=== PATIENT | female | born 1990 | race Two or more races ===

== ENCOUNTER → 2019-12-30 13:43 | Outpatient (BNVA) | payer OTHER, SELFPAY | PROVIDERS: PCP Internal Medicine; Visit Provider Physician Assistant Medical | DX: R10.9 Unspecified abdominal pain (principal) | CPT/HCPCS: 99213 ==

== ENCOUNTER → 2020-01-18 07:42 | Outpatient (BNVA) | payer OTHER, SELFPAY | PROVIDERS: PCP Internal Medicine; Visit Provider Physician Assistant Medical | DX: M17.12 Unilateral primary osteoarthritis, left knee (principal); M67.52 Plica syndrome, left knee | CPT/HCPCS: 99213 ==

== ENCOUNTER 2020-02-08 09:00 | Outpatient (RCR) | payer OTHER, SELFPAY ==
--- NOTE | 2020-01-12 12:53 | MHC.PT.OE ---
[facility] Office [place] Office [place] Office [address] Robin Marinelli [address] [phone] F: [phone] F: [phone] F: [phone] F: [phone] Physical Therapy Evaluation Current Condition Diagnosis: LEFT KNEE PAIN Onset Date: AUGUST Date of Surgery: Chief Complaint/ Current Level of Function: INJURED AT WORK, [place] [facility] [place] 12 SESSIONS, HAD TO DC SECONDARY TO COVID/CHILDCARE DIFFICULTIES AND NOW RETURNS FOR CONTINUATION OF PT. LUCAS REPORTS THAT THE THERAPY WAS HELPING BUT SINCE SHE HAS BEEN OUT OF PT X 1 MONTH AND PAIN IS RETURNING AND INCREASING. SHE NOTES INCREASING DIFFICULTY WITH WALKING. 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 PAIN REPORTED IN ANTERIOR KNEE INDICATED IN [place]. DENIES ALTERED SENSATION, NUMBNESS NOR RADIATING PAIN. 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 Patient Goals and Expectations: RETURN TO NORMAL ACTIVITY WITHOUT PAIN Past Medical History: NON CONTRIBUTORY Medications: IBUPROFEN PRN Precautions/ Contraindications: NONE SPECIFIED Outcome Measure: LEFS Pain Pain Score: 5 Pain Scale Used: Numeric (0 - 10) Pain Location: LEFT ANTERIOR KNEE Pain Radiation Location: Pain Frequency: Intermittent Pain Description: SHARP Aggravating Factors: WALKING, STANDING Alleviating Factors: REST Objective Findings Posture: Skin & Soft Tissue/ Palpation: Gait/ Functional Mobility: INCREASED PRONATION PHASE HARJIT, MILD VALGUS COLLAPSE AROM (PROM) Strength Hip Flexion: Extension: Abduction: Adduction: ER: IR: Comment: Flexion: 5/5 Extension: 4/5 Abduction: 4/5 Adduction: NT ER: 4/5 IR: 5/5 Other: Knee Flexion: 120(125) Extension: 6(4) Comments: Patella Mobility: Flexion: 5/5 Extension: 5/5 Other: Alonso Assessment: Sacroiliac Assessment: Muscle Length: Special Tests: Vitals: BP: HR: O2SAT: RR: Other: Balance: Neurological Screen: Biceps DTR: Brachioradialis DTR: Triceps DTR: Patella DTR: Achilles DTR: Other: Dermatomes: Sensation: Myotomes: Patient Education Primary 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 SHE WAS INITIALLY IMPROVING WITH THERAPY BUT DUE TO COVID AND CHILDCARE DIFFICULTIES SHE NEEDED TO PUT THERAPY ON HOLD. SHE NOW RETURNS FOR PT SYMPTOMS WERE WORSENING. UPON EXAM IMPAIRMENTS INCLUDE DECREASED ROM, DECREASED STRENGTH, ALTERED POSTURE AND POSITIONING AND INCREASED PAIN. FUNCTIONAL LIMITATIONS INCLUDE DECREASED TOLERANCE TO STATIC STANDING, WALKING, SQUATTING AND HEAVY LIFTING. SHE REPORTS DECREASED ABILITY TO PARTICIPATE IN FITNESS AND COMMUNITY ACTIVITIES AND DECREASED ABILITY TO PERFORM WORK TASKS. SHE IS AN APPROPRIATE CANDIDATE FOR SKILLED PT TO ADDRESS PHYSICAL IMPAIRMENTS AND PROVIDE A TAILORED PROGRAM OF THERAPEUTIC ACTIVITIES TO PROMOTE OPTIMAL RETURN TO PLOF. Rehabilitation Potential: Good Plan of Care Frequency and Duration 2X WEEK FOR 4 WEEKS Short Term Goals INDEPENDENT WITH SELF MANAGEMENT OF SYMPTOMS AND INDEPENDENT INITIAL HEP IN 2 WEEKS [ End ] Care Home Goals TO DEMONSTRATES AMBULATION ON MULTIPLE SURFACES WITHOUT PAIN GREATER THAN 3/10 IN 4 WEEKS TO DEMONSTRATE FULL FUNCTIONAL SQUAT WITHOUT CUING IN 4 WEEKS TO RETURN TO WORK FT/FD IN 6 WEEKS WITHOUT RESTRICTION IN 6 WEEKS [ End ] Treatment Plan Therapeutic Exercise Dynamic Therapeutic Activities Neuromuscular Re-ed Manual Therapies Joint Mobilization Taping Gait Home Exercise Program Patient Education Electrical Stimulation Iontophoresis Ultrasound Hot or Cold Pack Other Reviewed/ Agreed with Student Documentation: N/A Therapist: Electronically signed by: RAH GILL PT, DPT Please sign and return to therapist. Thank you for your referral.
--- NOTE | 2020-02-04 10:22 | MHC.PT.PR ---
[facility] [place] Office [place] Office [place] Office [address] Robin Marinelli 140 [facility] [phone] F: [phone] F: [phone] F: [phone] F: [phone] Physical Therapy Progress Note Diagnosis: LEFT KNEE PAIN Date of Surgery: Date of Evaluation: 01/12/20 Treatments to Date: 7 Cancellations to Date: 0 No Shows to Date: 0 Subjective: I felt really sore but great after the last session, it was a great workout No real pain now, just that heavy feeling Pain Score: 1 Pain Location: Left anterior knee Objective Measures: PAIN 1 at current, but subjectively reports it can increase to 7 with long duration, high load activities ROM 0-125 (improvred from 6-120) MMT REVEALS: HIP EXT, ABD AND ER ALL 5/5 (IMPROVED FROM 4/5) Assessment: Eboni is progressing well with physical therapy and making progress towards goals as anticipated. Today she demosntrates both ROM and strength of LE WNLs. 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 She demonstrated appropriate body mechanics with lifting and carrying up to 20# today. She will benefit from continued therapy to progress dynamic stabilization at knee joint and promote independence with work tasks and lifting. F/U with [facility] 02/08. PT Plan: Continue with PT Frequency and Duration: The patient will be seen 2xweek for 4 weeks Treatment Plan: Therapeutic Exercise Dynamic Therapeutic Activities Neuromuscular Re-ed Manual Therapies Joint Mobilization Taping Gait Home Exercise Program Patient Education Hot or Cold Pack Reviewed/ Agreed with Student Documentation: N/A Therapist: Thank you once again for your referral.
--- NOTE | 2020-02-14 14:54 | MHC.PT.DC ---
[facility] [place] Office [place] Office [place] Office [address] Robin Marinelli [address] [phone] F: [phone] F: [phone] F: [phone] F: [phone] Physical Therapy Discharge Report Diagnosis: LEFT KNEE PAIN Date of Surgery: Date of Evaluation: 01/12/20 Date of Discharge: 02/11/20 Treatments to Date: 8 Cancellations to Date: 0 No Shows to Date: 0 Discharge Status: Improved Function Independent with HEP Insurance Declined Tx Discharge Summary: Eboni was progressing well with physical therapy and making progress towards goals as anticipated. At last visit she demonstrated both ROM and strength of LE WNLs. She had met short term goals and was progressing well towards assisted goals with pain ( heaviness ) the most limiting factor with prolonged activities. She demonstrated appropriate body mechanics with lifting and carrying up to 20#. We had requested additional visits to progress dynamic stabilization at knee joint and promote independence with work tasks and lifting however insurance declined further PT visits. Electronically signed by: RAH GILL PT, DPT Please sign and return to therapist. Thank you for your referral.
== END 2020-03-10 10:57 | disposition other institution (70) ==
LOC: HO.PT 09:00
PROVIDERS: Visit Provider Physician Assistant Medical
DX: M17.12 Unilateral primary osteoarthritis, left knee (principal); M67.52 Plica syndrome, left knee
CPT/HCPCS: 97110; 97112; 97161; 97164; 97530

== ENCOUNTER → 2020-02-09 13:54 | Outpatient (BNVA) | payer OTHER, SELFPAY | PROVIDERS: PCP Internal Medicine; Visit Provider Physician Assistant Medical | DX: M67.52 Plica syndrome, left knee (principal); M17.12 Unilateral primary osteoarthritis, left knee | CPT/HCPCS: 99213 ==

== ENCOUNTER 2020-03-13 15:10 | Outpatient (REF) | payer OTHER, SELFPAY | END 2020-03-13 15:11 | disposition home or self-care (01) | LOC: HO.LAB 15:10 | PROVIDERS: PCP Internal Medicine; Visit Provider Internal Medicine | DX: Z20.828 Contact with and (suspected) exposure to other viral communicable diseases (principal) | CPT/HCPCS: C9803; U0003 ==

== ENCOUNTER 2020-03-20 09:29 | Emergency (ER) | payer OTHER, SELFPAY ==
[2020-03-20 09:36] VITALS: BP 106/62; PULSE 93; RESP 18; TEMP 36.4; O2SAT 97; BMI 26.2
--- NOTE | 2020-03-20 09:46 | XR_ITS ---
EXAMINATION: XR SHOULDER, RIGHT CLINICAL INFORMATION: Right shoulder pain, status post would falling on arm. COMPARISON: None TECHNIQUE: AP external rotation, Grashey, scapular Y, and axillary views of the right shoulder. FINDINGS: The bones and soft tissues are normal. No fracture. Glenohumeral and acromioclavicular alignment is anatomic with normal joint space. No abnormal soft tissue calcifications. XR/XR shoulder RT min 2V IMPRESSION: Unremarkable right shoulder exam.
[2020-03-20] MEDS: Acetaminophen 325 MG TABLET 650 MG PO (09:54)
[2020-03-20] MEDS: NaPROXEN 500 MG TABLET PO (09:54)
--- NOTE | 2020-03-20 09:55 | ED_ITS ---
HPI - Extremity Problem General Chief complaint: Extremity Injury, Upper Stated complaint: shoulder inj,work related Time Seen by Provider: 03/20/20 09:45 Source: patient Mode of arrival: ambulatory History of Present Illness HPI Narrative: 30-year-old female with no significant past medical history presenting to the ED complaining of right shoulder pain s/p piece of wood falling off wall landing on shoulder yesterday. Denies head trauma/LC. Reports pain radiating down arm. Denies numbness, tingling, weakness, injury to other area MD Complaint: extremity pain Related Data Previous Rx's Medication Instructions Recorded acetaminophen [Tylenol Extra 500 mg PO Q6H PRN #20 tab 03/20/20 Strength] cyclobenzaprine 5 mg PO Q8H PRN 5 Days #14 tab 03/20/20 lidocaine [Lidoderm] 1 patch TOPICAL DAILY PRN #30 ea 03/20/20 MDD remove after 12 hours naproxen 500 mg PO BID PRN 10 Days #20 tab 03/20/20 Allergies Allergy/AdvReac Type Severity Reaction Status Date / Time melatonin Allergy Unknown pruritus Verified 02/15/20 07:07 Review of Systems Review of Systems: Constitutional: No Weight loss, No Fever, No Chills Respiratory: No Cough, No Sputum, No Wheezing Musculoskeletal: + joint pain, No Myalgias, No Joint Swelling Skin: No Skin Lesions, No rash Neuro: No Weakness, No Numbness, No Paresthesias Yes all other systems are reviewed and are negative [facility] Past Medical History Attestation statement: The following information was validated with the patient. Surgical History (Updated 02/15/20 @ 07:08 by BREE Samayoa) History of cone biopsy of cervix History of surgery Family History Family History (Updated 02/15/20 @ 07:08 by BREE Samayoa) Father No problems noted. Mother No problems noted. Social History Social History Advance Directives: No Advance Directives Information Provided: No Physical Exam Vital Signs: Vital Signs: Last Vital Signs Temp 97.6 F 03/20/20 09:36 Pulse 93 03/20/20 09:36 Resp 18 03/20/20 09:36 BP 106/62 03/20/20 09:36 Pulse Ox 97 03/20/20 09:36 Body Mass Index 26.2 Const: General: cooperative and healthy appearing Orientation/con sciousness: patient oriented x3 Limitations: no limitations HENMT: Head: Yes normal to inspection Ears: hearing grossly normal bilaterally General nose exam: Normal external nose present Face and sinus: Yes normal facial exam Eyes: General: appearance normal, both eyes and all related structures EOM: EOMs intact bilaterally Neck: Other: No midline cervical spinous tenderness. Neck: Yes normal visual inspection Resp: Effort & Inspection: normal respiratory effort Cardio: Peripheral pulses: radial pulses present Skin: Rashes: no rashes Wounds: no wounds Neuro: General: patient oriented x3 Gait exam (Neuro): Normal gait present Extrem: Other: Right shoulder with ttp > posteriorly, no appreciable deformity/cellulitis. +right-sided trapezius muscle tenderness. Limited complete flexion due to pain. NV intact General: Yes normal to inspection Course Course Course Narrative: * 1119--shoulder x-ray unremarkable MDM - Extremity (Nontraumatic) MDM Narrative Medical decision making narrative: Likely MSK pain/strain. Low concern for fracture/dislocation Discharge Plan Discharge Clinical Impression: Right shoulder pain Qualifiers: Chronicity: acute Qualified Code(s): M25.511 - Pain in right shoulder Patient Disposition: Home, Self-Care Instructions: Arthralgia (ED) Additional Instructions: Your x-rays are unremarkable today in the ED New likely strain/sprain your shoulder Follow-up with her primary care doctor Your pain is likely musculoskeletal Flexeril is a muscle relaxer, take at night as it makes you drowsy, do not drive, drink alcohol, or operate machinery while taking it Naproxen as an anti-inflammatory / pain medication, take with food Lidoderm patches are numbing patches, apply to painful area In addition take Tylenol at home If symptoms persist or worsen, pain becomes unbearable, you developed urinary retention or incontinence, or weakness return to the ED Prescriptions: New acetaminophen [Tylenol Extra Strength] 500 mg tablet 500 mg PO Q6H PRN (Reason: pain or fever) Qty: 20 RF: 0 lidocaine [Lidoderm] 5 % adhesive patch,medicated 1 patch topical DAILY MDD remove after 12 hours PRN (Reason: pain) Qty: 30 RF: 0 naproxen 500 mg tablet 500 mg PO BID PRN (Reason: pain) 10 Days Qty: 20 RF: 0 cyclobenzaprine 5 mg tablet 5 mg PO Q8H PRN (Reason: pain (scale score 7-10)) 5 Days Qty: 14 RF: 0 Referrals: [facility] [Outside] - 2 days
== END 2020-03-20 11:25 | disposition home or self-care (01) ==
PROVIDERS: Emergency Provider Emergency Medicine; PCP Internal Medicine
DX: Z04.2 Encounter for examination and observation following work accident (principal); G89.11 Acute pain due to trauma; M25.511 Pain in right shoulder
CPT/HCPCS: 73030; 99283

== ENCOUNTER → 2020-03-22 10:52 | Outpatient (BNVA) | payer OTHER, SELFPAY | PROVIDERS: PCP Internal Medicine; Visit Provider Physician Assistant Medical | DX: S40.011A Contusion of right shoulder, initial encounter (principal); W22.8XXA Striking against or struck by other objects, initial encounter | CPT/HCPCS: 99202 ==

== ENCOUNTER → 2020-03-28 09:38 | Outpatient (BNVA) | payer OTHER, SELFPAY | PROVIDERS: PCP Internal Medicine; Visit Provider Physician Assistant | DX: S40.011A Contusion of right shoulder, initial encounter (principal); W22.8XXA Striking against or struck by other objects, initial encounter | CPT/HCPCS: 29125; 99213 ==

== ENCOUNTER 2020-04-10 11:00 | Outpatient (RCR) | payer OTHER, SELFPAY ==
--- NOTE | 2020-04-05 12:47 | MHC.PT.EP ---
[facility] [place] Office [place] Office [place] Office [address] Nikole Marinelli [address] [phone] F: [phone] F: [phone] F: [phone] F: [phone] Physical Therapy Plan of Care Date of Evaluation: 04/05/20 Date of Surgery: NA Diagnosis: Blunt trauma to R posterior shoulder Assessment: 30 year old female referred for blunt trauma to R shoulder . Pt injured herself at work about 2 week back. A piece of wood fell on her shoulder while she was working with a patient. Examination reveals 0/10 pain at rest and 7/10 pain with supine lying, lifting heavy weights, TTP over R spine of scapula, pain localized to R shoulder with very occasional radiating symptoms down R UE, pain with end range shoulder flexion, decreased scap muscle strength, altered posture and negative neer's, hawkin kevyn, and AC compression test. She is independent with all ADLS but has pain with activities requiring her to lift. 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 She is a good candidate for PT based on age, goals, physical impairments and functional limitations. She would benefit from therapy to decrease pain, improve ROM, increase muscle strength, postural correction and functional training. Frequency and Duration: The patient will be seen 2/week for 5 weeks Short Term Goals: 1. Pt will have 50% decrease in pain in 2 weeks 2. 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 Pt will be able to perform all her ADLs without pain in 4 weeks. 2. Pt will be able to perform all work activities without pain in 5 weeks. 3. Pt will return to PLOF in 5 weeks Treatment Plan: Modalities to reduce pain, spasms and effusion. Manual therapy to restore motion and function. Therapeutic exercise to improve strength and flexibility. Neuromuscular re-education for posture and balance. Therapeutic activities to return to functional activities of daily living. Electronically signed by: Heather Carter DPT Please sign and return to therapist. Thank you for your referral.
--- NOTE | 2020-05-16 14:50 | MHC.PT.DC ---
[facility] [place] Office [place] Office [place] Office [address] Robin Marinelli [address] [phone] F: [phone] F: [phone] F: [phone] F: [phone] Physical Therapy Discharge Report Diagnosis: Blunt trauma to R posterior shoulder Date of Surgery: NA Date of Evaluation: 04/05/20 Date of Discharge: 05/16/20 Treatments to Date: 3 Cancellations to Date: 0 No Shows to Date: 1 Discharge Status: Visit Non-compliance Discharge Summary: 05/16/20- Pt did not make any more appointments after 2 weeks of therapy. Pt called and stated that she would like to continue therapy however she did not make any more appointments. Pt therefore d/c for non compliance. Electronically signed by: Heather Carter DPT Please sign and return to therapist. Thank you for your referral.
== END 2020-05-16 14:51 | disposition other institution (70) ==
LOC: HO.PT 11:00
PROVIDERS: PCP Internal Medicine; Visit Provider Physician Assistant
DX: S49.91XD Unspecified injury of right shoulder and upper arm, subsequent encounter (principal); R60.0 Localized edema
CPT/HCPCS: 97014; 97110; 97140; 97161

== ENCOUNTER → 2020-04-12 11:04 | Outpatient (BNVA) | payer OTHER, SELFPAY | PROVIDERS: PCP Internal Medicine; Visit Provider Physician Assistant Medical | DX: S46.911D Strain of unspecified muscle, fascia and tendon at shoulder and upper arm level, right arm, subsequent encounter (principal); X58.XXXD Exposure to other specified factors, subsequent encounter; M54.10 Radiculopathy, site unspecified | CPT/HCPCS: 99213 ==

== ENCOUNTER → 2020-05-03 10:42 | Outpatient (BNVA) | payer OTHER, SELFPAY | PROVIDERS: PCP Internal Medicine; Visit Provider Physician Assistant Medical | DX: S49.91XD Unspecified injury of right shoulder and upper arm, subsequent encounter (principal); W22.8XXD Striking against or struck by other objects, subsequent encounter | CPT/HCPCS: 99213 ==

== ENCOUNTER 2020-05-03 12:35 | Outpatient (REF) | payer OTHER, SELFPAY ==
--- NOTE | 2020-05-03 12:38 | MR_ITS ---
EXAMINATION: MR SHOULDER WITHOUT CONTRAST, RIGHT CLINICAL INFORMATION: Blunt trauma with radicular arm pain. Weakness. Attention: Scapula. COMPARISON: XR right shoulder 03/20/2020 TECHNIQUE: MRI of the shoulder without contrast was performed on a high-field scanner. FINDINGS: ROTATOR CUFF: Intact. No muscle atrophy or fatty infiltration. BICEPS: Normal. CORACOACROMIAL ARCH: The undersurface of the acromion is curved with no subacromial spur. The acromioclavicular joint is normal. LABRUM/CAPSULE: There is probably some cartilage undermining the posterior labrum. Otherwise, there is no definite discrete labral tear. The capsular structures are unremarkable. GLENOHUMERAL JOINT/MARROW: The cartilage is intact. There is a small focus of bone marrow edema in the greater tuberosity which may represent a small bone contusion. Most of the scapula is imaged, except for the medial edge, and is unremarkable. MR/MR shoulder RT wo con IMPRESSION: 1. Possible small bone contusion in the greater tuberosity. 2. Otherwise, unremarkable MRI of the right shoulder with no evidence of internal derangement.
== END 2020-05-03 12:36 | disposition home or self-care (01) ==
LOC: HO.MRI 12:35
PROVIDERS: Visit Provider Internal Medicine
DX: M25.511 Pain in right shoulder (principal); R53.1 Weakness
CPT/HCPCS: 73221

== ENCOUNTER → 2020-05-11 12:55 | Outpatient (BNVA) | payer OTHER, SELFPAY | PROVIDERS: PCP Internal Medicine; Visit Provider Physician Assistant Medical | DX: S40.011D Contusion of right shoulder, subsequent encounter (principal); X58.XXXD Exposure to other specified factors, subsequent encounter | CPT/HCPCS: 99213 ==

== ENCOUNTER 2020-05-25 08:32 | Outpatient (REF) | payer OTHER, SELFPAY ==
--- NOTE | 2020-05-25 09:00 | EMG_ITS ---
Right median and ulnar motor and sensory studies were performed. Right radial sensory study was performed and paraspinal muscles were tested with a needle. IMPRESSION: Unremarkable study with no evidence of entrapment neuropathy or radiculopathy. There was no evidence of plexopathy either. MD BELKYS Kapoor/NATL / [id number]
== END 2020-05-25 08:33 | disposition home or self-care (01) ==
LOC: HO.NEURO 08:32
PROVIDERS: Visit Provider Physician Assistant Medical
DX: S49.91XA Unspecified injury of right shoulder and upper arm, initial encounter (principal)
CPT/HCPCS: 95886; 95910

== ENCOUNTER 2020-06-30 08:49 | Outpatient (REF) | payer OTHER, SELFPAY ==
--- NOTE | ~2020-06-30 | FL_ITS ---
EXAMINATION: FL BARIUM SWALLOW CLINICAL INFORMATION: Gastroesophageal reflux disease. COMPARISON: None TECHNIQUE: Barium swallow examination is performed using fluoroscopic evaluation in addition to multiple fluoroscopic spot views. The patient is imaged both upright and prone and using both thick and thin sulfate along with effervescent granules. Fluoroscopy time: 1.6 minutes DAP: 9.3 Gycm2 Images: 53 FINDINGS: Following intravenous administration of thick barium, barium coated turkey in upright view there is normal perfusion bolus from the oral cavity through the pharynx, esophagus into stomach without any evidence of obstruction, narrowing or stricture. Following oral demonstration of thin barium there is normal distention of the entire esophagus without obstruction, narrowing or stricture. There is no gastroesophageal reflux or hiatal hernia. FL/FL barium swallow IMPRESSION: Unremarkable barium swallow exam.
== END 2020-06-30 08:50 | disposition home or self-care (01) ==
LOC: HO.XRAY 08:49
PROVIDERS: PCP Internal Medicine; Visit Provider Internal Medicine
DX: K21.9 Gastro-esophageal reflux disease without esophagitis (principal)
CPT/HCPCS: 74220

== ENCOUNTER → 2020-09-04 11:43 | Outpatient (BNVA) | payer OTHER, SELFPAY | PROVIDERS: PCP Internal Medicine; Visit Provider Internal Medicine | DX: M79.89 Other specified soft tissue disorders (principal) | CPT/HCPCS: 36415; 85027; 85652; 86038; 86039; 86431; 99202 ==

== ENCOUNTER → 2020-09-11 14:29 | Outpatient (BNVA) | payer OTHER, SELFPAY | PROVIDERS: PCP Internal Medicine; Visit Provider Internal Medicine | DX: M79.641 Pain in right hand (principal) | CPT/HCPCS: 99213 ==

== ENCOUNTER → 2020-09-20 14:56 | Outpatient (BNVA) | payer SELFPAY | PROVIDERS: PCP Internal Medicine | DX: Z76.89 Persons encountering health services in other specified circumstances (principal) ==

== ENCOUNTER → 2020-09-25 10:49 | Outpatient (BNVA) | payer OTHER, SELFPAY | PROVIDERS: PCP Internal Medicine; Visit Provider Internal Medicine | DX: M79.641 Pain in right hand (principal) | CPT/HCPCS: 99213 ==

== ENCOUNTER → 2020-10-18 10:44 | Outpatient (BNVA) | payer OTHER, SELFPAY | PROVIDERS: PCP Internal Medicine; Visit Provider Physician Assistant | DX: M79.641 Pain in right hand (principal); M79.631 Pain in right forearm | CPT/HCPCS: 99213 ==

== ENCOUNTER 2021-08-30 08:54 | Emergency (ER) | payer OTHER, SELFPAY ==
--- NOTE | ~2021-08-30 | XR_ITS ---
EXAMINATION: XR FOOT, RIGHT CLINICAL INFORMATION: Foot pain COMPARISON: None TECHNIQUE: AP, lateral, and oblique views of the right foot. FINDINGS: No fracture or dislocation. Alignment is anatomic. Joint spaces are maintained. Unremarkable soft tissues. XR/XR foot RT 2V IMPRESSION: Normal right foot.
[2021-08-30 09:16] VITALS: BP 135/91; PULSE 82; RESP 18; TEMP 36.6; O2SAT 100; BMI 28.3
--- NOTE | 2021-08-30 10:35 | ED.LOWEXIN ---
HPI - Extremity Injury (Lower) General Chief Complaint: Extremity Injury, Lower Stated Complaint: R FOOT PAIN Time Seen by Provider: 08/30/21 10:31 Source: patient Mode of arrival: ambulatory Limitations: no limitations History of Present Illness MD complaint: foot injury Onset (ago): day(s) (yesterday) Injury: Right: foot Type of Injury: other ( grocery store ran over the patient's foot) Place: other ( grocery store) Severity: mild Relieving factors: nothing Exacerbating factors: weight bearing, movement and palpation Context: other ( crush injury) Associated symptoms: ambulatory Other symptoms: none Related Data Previous Rx's Medication Instructions Recorded ibuprofen 800 mg tablet 800 mg PO Q8H PRN 30 Days #90 tab 06/14/21 naproxen 500 mg tablet 500 mg PO BID PRN #14 tab 08/30/21 Allergies Allergy/AdvReac Type Severity Reaction Status Date / Time melatonin Allergy Unknown pruritus Verified 06/14/21 09:54 Review of Systems Review of Systems: Constitutional : No Weight loss, No Fever, No Chills, No Night Sweats, No Fatigue, No Malaise ENT/Mouth : No Hearing loss, No Ear Pain, No Nasal Congestion, No Sinus Pain, No Hoarseness, No sore throat, No Rhinorrhea, No Swallowing Difficulty Eyes: No Eye Pain, No Swelling, No Redness, No Foreign Body, No Discharge, No Vision Changes Cardiovascular : No Chest Pain, No SOB, No Dyspnea on Exertion, No Orthopnea, No Edema, No Palpitations Respiratory : No Cough, No Sputum, No Wheezing, No Smoke Exposure, No Dyspnea Gastrointestinal : No Nausea, No Vomiting, No Diarrhea, No Constipation, No abdominal Pain, No Hematochezia, No Melena Genitourinary : no irregular bleeding, No Dysuria, No Urinary Frequency, No Hematuria, No Urinary Incontinence, No Urgency, No Flank Pain, No Urinary Flow Changes, No Hesitancy Musculoskeletal : + right foot joint pain, No Myalgias, No Joint Swelling Skin : No Skin Lesions, No rash Neuro : No Weakness, No Numbness, No Paresthesias, No Loss of Consciousness, No Dizziness, No Headache Psych : No Anxiety/Panic, No Depression, No SI/HI/AH/VH, No Social Issues, Heme/Lymph: No Bruising, No Bleeding,No Lymphadenopathy Endocrine : No Polyuria, No Polydipsia, No Temperature Intolerance Yes all other systems are reviewed and are negative [facility] Past Medical History Attestation statement: The following information was validated with the patient. Source: old records reviewed and nursing notes reviewed Medical History Encounter for physical examination GERD (gastroesophageal reflux disease) Left knee pain Surgical History History of cone biopsy of cervix History of surgery Family History Family History Father No problems noted. Mother Essential hypertension Thyroid disease Asthma Social History Social History Housing: House Alcohol intake: current Alcohol intake frequency: a few times a week Alcohol type: wine Patient Tobacco Use Status: Current everyday Tobacco user Tobacco use type: Cigarette Cigarettes Per Day: 2 e-Cigarette/Vaping Use: Never Used Second Hand Smoke Exposure: No Advance Directives: No Advance Directives Information Provided: No service: No Current occupational status: employed Current occupational exposures/hazards: No Physical Exam Vital Signs: Vital Signs: Last Vital Signs Temp 97.9 F 08/30/21 09:16 Pulse 82 08/30/21 09:16 Resp 18 08/30/21 09:16 BP 135/91 H 08/30/21 09:16 Pulse Ox 100 08/30/21 09:16 BMI result Body Mass Index 28.3 vital signs have been reviewed as normal and appeared to be correct. Blood pressure 135/91 Heart rate normal. Respiration rate normal. Temperature normal. Oxygen saturation normal. Appearance: Alert. Oriented X3. No acute distress. Head: Normal external exam. Normocephalic. Atraumatic. Eyes: PERRLA. EOMI. Conjunctiva and sclera normal. Eyelids normal. ENT: Pharynx normal. Uvula midline. Moist mucous membranes. Neck: Normal inspection. Neck supple. FROM. CVS: Normal heart rate and rhythm. Respiratory: No respiratory distress. Painless inspiration. Skin: Skin warm and dry. Normal skin color. Normal skin turgor. No rashes/lesions/lacerations noted. Extremities: Patient with TTp to right foot at the dorsal aspect no obvious signs of trauma/deformities/lacerations/abrasions/swelling or FB's. No obvious ligamentous or tendon injury noted. She has full range of motion of the right toe/foot/ ankle joint. Otherwise all other extremities exhibit normal range of motion nontender. Neuro: Oriented X 3. No motor deficit. No sensory deficit. Reflexes normal. Normal steady gait. No focal neuro deficits noted. Vascular: + radial pulses/+ 2 distal pedal pulses/+2 dorsalis pedis b/l. Normal cap refill. No cyanosis noted to upper extremity nails and lower extremity toes nails. Course Course Course Narrative: X-ray negative will place an Medhat wrap and treat symptomatically and instructed follow-up with PCP and to return if any new or worsening symptoms. Patient understands agrees with this plan. MDM - Extremity Injury (Lower) Medical Records Attestation: I reviewed the patient's medical records. Imaging Data Right foot x-ray: Attestation: I personally reviewed and interpreted this imaging study as follows: Radiologist's impression: FINDINGS: No fracture or dislocation. Alignment is anatomic. Joint spaces are maintained. Unremarkable soft tissues.? XR/XR foot RT 2V IMPRESSION: Normal right foot. Discharge Plan Discharge Clinical Impression: Right foot sprain Patient Disposition: Home, Self-Care Instructions: How to Use an Elastic Bandage (ED), Foot Sprain (ED) Prescriptions: New naproxen 500 mg tablet 500 mg PO BID PRN (Reason: pain) Qty: 14 0RF No Action ibuprofen 800 mg tablet 800 mg PO Q8H PRN (Reason: pain) 30 Days Qty: 90 0RF Referrals: Farzaneh Levi MD [Primary Care Provider] - 2 days Stand Alone Forms: Work/School Release
== END 2021-08-30 10:51 | disposition home or self-care (01) ==
PROVIDERS: Emergency Provider Emergency Medicine; PCP Internal Medicine
DX: S93.601A Unspecified sprain of right foot, initial encounter (principal); W23.0XXA Caught, crushed, jammed, or pinched between moving objects, initial encounter; Y93.9 Activity, unspecified; Y92.512 Supermarket, store or market as the place of occurrence of the external cause; Y99.9 Unspecified external cause status
CPT/HCPCS: 73620; 99283

== ENCOUNTER 2021-11-20 10:41 | Emergency (ER) | payer OTHER, SELFPAY ==
--- NOTE | ~2021-11-20 | XR_ITS ---
EXAMINATION: XR CHEST CLINICAL INFORMATION: Dyspnea. Covid positive. COMPARISON: None TECHNIQUE: Frontal view of the chest was obtained. FINDINGS: No significant abnormality is noted involving the heart, lungs, mediastinum, bony thorax or soft tissues. XR/XR chest 1V IMPRESSION: Unremarkable examination.
[2021-11-20 10:44] VITALS: BP 149/100; PULSE 84; RESP 18; TEMP 36.6; O2SAT 99; BMI 26.2
--- NOTE | 2021-11-20 11:48 | ED_ITS ---
HPI - General Adult General Chief complaint: Upper Respiratory Symptoms Stated complaint: COVID+/SOB/Headache Time Seen by Provider: 11/20/21 10:50 Source: patient Mode of arrival: ambulatory History of Present Illness HPI narrative: 31-year-old female with a past medical history of GERD, presents to the emergency department with SOB, headache, and myalgias. Patient states that her COVID-19 test returned positive on Thursday 11/16, however her symptoms began morning. Patient endorses mild SOB on exertion, headache, chills, runny nose, mild cough with sputum production, nausea, and mild sore throat. Patient reports that she has tried ibuprofen with little relief, last taken yesterday. Patient denies fever, vision changes, lightheadedness, dizziness, wheezing, vomiting, or abdominal pain. Onset (ago): day(s) Related Data Previous Rx's Medication Instructions Recorded ibuprofen 800 mg tablet 800 mg PO Q8H PRN pain 30 days #90 06/14/21 tabs naproxen 500 mg tablet 500 mg PO BID PRN pain #14 tabs 08/30/21 benzonatate 100 mg capsule 100 mg PO TID PRN cough #14 caps 11/20/21 mbvjigjpmc-dxnrzvmxaevrm-sbnbvszx 1 cap PO Q4-6H PRN headache #14 11/20/21 50 mg-300 mg-40 mg capsule caps (Fioricet) fluticasone propionate 50 2 spray intranasal DAILY #16 grams 11/20/21 mcg/actuation nasal spray,suspension (Flonase Allergy Relief) Allergies Allergy/AdvReac Type Severity Reaction Status Date / Time melatonin Allergy Unknown pruritus Verified 06/14/21 09:54 Review of Systems Review of Systems: Constitutional: No Weight loss, No Fever, + Chills ENT/Mouth: No Ear Pain, + Nasal Congestion, No Sinus Pain, No Hoarseness, + Mild Sore Throat, + Rhinorrhea, No Swallowing Difficulty Cardiovascular: No Chest Pain, + Mild SOB Respiratory: + Cough, + Sputum, No Wheezing Gastrointestinal: + Nausea, No Vomiting, No Diarrhea, No Constipation, No Abdominal pain Genitourinary: No Dysuria, No Urinary Frequency, No Hematuria, No Urinary Incontinence/retention, No Urgency, No Flank Pain Musculoskeletal: No Joint Pain, + Myalgias, No Joint Swelling Skin: No Skin Lesions, No Rash Neuro: No Weakness, No Numbness, No Paresthesias Yes all other systems are reviewed and are negative Constitutional: Constitutional: Reports as per [facility] Past Medical History Attestation statement: The following information was validated with the patient. Medical History Encounter for physical examination GERD (gastroesophageal reflux disease) Left knee pain Surgical History History of cone biopsy of cervix History of surgery Family History Family History Father No problems noted. Mother Essential hypertension Thyroid disease Asthma Social History Social History Housing: House Alcohol intake: current Alcohol intake frequency: a few times a week Alcohol type: wine Patient Tobacco Use Status: Current everyday Tobacco user Tobacco use type: Cigarette Cigarettes Per Day: 2 e-Cigarette/Vaping Use: Never Used Second Hand Smoke Exposure: No Advance Directives: No Advance Directives Information Provided: Yes service: No Current occupational status: employed Current occupational exposures/hazards: No Physical Exam ED Vital Signs: Vital Signs - 24 hr 11/20/21 10:44 11/20/21 13:17 Temperature 97.8 F Pulse Rate 84 58 Respiratory Rate 18 16 Blood Pressure 149/100 H 105/67 Pulse Oximetry 99 100 Oxygen Delivery Method Room Air Room Air BMI result Body Mass Index 26.2 Const General: cooperative, healthy appearing and no acute distress Orientation/consciousness: patient oriented x3 Limitations: no limitations [facility] Head: Yes normal to inspection and Yes atraumatic Ears: hearing grossly normal bilaterally General nose exam: Normal external nose present Face and sinus: Yes normal facial exam Mouth: Normal oral and palatal mucosa present and moist mucous membranes Throat: Yes uvula midline Eyes General: appearance normal, both eyes and all related structures Pupils: Equal, round and reactive pupils present EOM: EOMs intact bilaterally Neck Neck: Yes normal visual inspection, Yes no meningeal signs and No lymphadenopathy Resp Effort & Inspection: normal respiratory effort and no respiratory distress Auscultation: clear to auscultation bilaterally, no crackles, no rales, no rhonchi and no wheezes Cardio Rate: regular rate Heart sounds: S1 normal heart sound present and S2 normal heart sound present GI Inspection: Yes normal to inspection and No distended Palpation (GI): Soft to palpation, nontender, no guarding and not rigid General: Yes no CVA tenderness Back/Spine/Pelvis Back: no CVA tenderness Skin General skin exam: no rashes or lesions noted Rashes: no rashes Wounds: no wounds Neuro General: patient oriented x3, tone normal and no meningeal signs Cranial nerves: Yes Equal, round and reactive pupils present Gait exam (Neuro): Normal gait present Extrem General: Yes normal to inspection Course Course Course Narrative: 12:01 -- XR chest 1V IMPRESSION: Unremarkable examination. -Repeat BP without intervention 111/75 -patient report symptomatic improvement after p.o. Fioricet Results discussed with patient including worrisome signs and symptoms and strict return precautions, and when to return to the emergency department. They verbalized understanding and feel safe for discharge at this time. Medical Decision Making ECG Data Attestation: I personally reviewed and interpreted this ECG as follows: Prior ECG tracings: available for review Interpretation: Test Reason : SOB Blood Pressure : / mmHG Vent. Rate : 074 BPM ? ? Atrial Rate : 074 BPM P-R Int : 162 ms? QRS Dur : 076 ms QT Int : 412 ms ? ? ? P-R-T Axes : 050 075 028 degrees QTc Int : 457 ms ? Normal sinus rhythm Nonspecific T wave abnormality Abnormal ECG When compared with ECG of 15-DEC-2018 12:04, No significant change was found Discharge Plan Discharge Clinical Impression: COVID-19 Patient Disposition: Home, Self-Care Instructions: COVID-19 (Coronavirus Disease 2019) (ED) Additional Instructions: Your chest x-ray was unremarkable. Fioricet is for headaches, take as needed. Be aware it has Tylenol mixed into not exceed 4 g in 1 day. Additionally Tessalon Perles are for cough. Flonase is a nasal decongestion. Follow up with her doctor as needed. Rest. Stay hydrated. At this time you will be okay for discharge. Please self isolate for 5-10 days. Do not expose yourself to others. You may not go to work or school. Please continue to follow cold instructions and wash your hands frequently. You may take Tylenol / Motrin as directed on the bottle for pain or fever. If you have constant or persistent shortness of breath, fever unresolved with medications, chest pain, or your unable to eat or drink please return to the ED CDC Guidelines for home isolation: - Stay away from others - WEAR A MASK if you are sick AND STAY HOME - Cover your mouth and nose with a tissue when you cough or sneeze. Dispose of tissues in a lined trash can and wash your hands immediately with soap and water for at least 20 seconds. If soap and water are not available, clean hands with alcohol-based hand shade cloth finisher that contains at least 60% alcohol. - Clean your hands often with soap and water for at least 20 seconds - Avoid touching your eyes, nose and mouth with unwashed hands - Do not share dishes, drinking glasses, cups, eating utensils, towels, or beddi ng with other people in your home. After using these items, wash them thoroughly with soap and water or put in the station baggage porter. - Clean high-touch surfaces in your isolation area ( sick room and bathroom) every day; let a caregiver clean and disinfect high-touch surfaces in other areas of the home. Clean the area or item with soap and water or another detergent if it is dirty. Then, use a household disinfectant. - Limit contact with pets and animals: If you must care for a pet, wash your hands before and after interacting with them) Prescriptions: New tqguyhjmqh-lwxfoyzmxtxab-bvzi [Fioricet] 50-300-40 mg capsule 1 cap PO Q4-6H PRN (Reason: headache) Qty: 14 0RF benzonatate 100 mg capsule 100 mg PO TID PRN (Reason: cough) Qty: 14 0RF fluticasone propionate [Flonase Allergy Relief] 50 mcg/actuation spray,suspension 2 spray intranasal DAILY Qty: 16 0RF Rx Instructions: administer into each nostril No Action ibuprofen 800 mg tablet 800 mg PO Q8H PRN (Reason: pain) 30 Days Qty: 90 0RF naproxen 500 mg tablet 500 mg PO BID PRN (Reason: pain) Qty: 14 0RF Referrals: Farzaneh Levi MD [Primary Care Provider] -
--- NOTE | 2021-11-20 12:12 | ECG_ITS ---
Test Reason : sob Blood Pressure : / mmHG Vent. Rate : 074 BPM Atrial Rate : 074 BPM P-R Int : 162 ms QRS Dur : 076 ms QT Int : 412 ms P-R-T Axes : 050 075 028 degrees QTc Int : 457 ms Normal sinus rhythm Nonspecific T wave abnormality Abnormal ECG When compared with ECG of 15-DEC-2018 12:04, No significant change was found Referred By: Shira Hector Electronically Signed By:PACO DE OLIVEIRA
[2021-11-20 13:17] VITALS: BP 105/67; PULSE 58; RESP 16; O2SAT 100
[2021-11-20] MEDS: Benzonatate 100 MG CAPSULE PO (13:44)
[2021-11-20] MEDS: Butalb/Acetamin/Caff 50/325/40 TABLET 2 TAB PO (13:44)
[2021-11-20] MEDS: Ondansetron ODT 4 MG TAB.RAPDIS TRANSLINGU (15:16)
[2021-11-20 15:28] VITALS: BP 112/83; PULSE 63; RESP 16; O2SAT 100
[2021-11-20] MEDS: Ketorolac Tromethamine 30 MG/ML VIAL IM (15:44)
== END 2021-11-20 16:14 | disposition home or self-care (01) ==
PROVIDERS: Emergency Provider Emergency Medicine; PCP Internal Medicine
DX: U07.1 COVID-19 (principal); R05.9 Cough, unspecified; M79.10 Myalgia, unspecified site; R06.02 Shortness of breath; Z71.6 Tobacco abuse counseling; F17.210 Nicotine dependence, cigarettes, uncomplicated; Z79.899 Other long term (current) drug therapy
CPT/HCPCS: 71045; 93005; 96372; 99284; J1885

== ENCOUNTER → 2022-02-05 12:27 | Outpatient (BNVA) | payer OTHER, SELFPAY | PROVIDERS: PCP Internal Medicine; Visit Provider Physician Assistant Medical | DX: S60.211A Contusion of right wrist, initial encounter (principal); X50.9XXA Other and unspecified overexertion or strenuous movements or postures, initial encounter | CPT/HCPCS: 73110; 99203 ==

== ENCOUNTER → 2022-02-14 14:39 | Outpatient (BNVA) | payer OTHER, SELFPAY | PROVIDERS: PCP Internal Medicine; Visit Provider Physician Assistant Medical | DX: S60.211A Contusion of right wrist, initial encounter (principal); X50.9XXA Other and unspecified overexertion or strenuous movements or postures, initial encounter | CPT/HCPCS: 99213 ==

== ENCOUNTER 2022-05-23 10:19 | Outpatient (REF) | payer OTHER, SELFPAY ==
[2022-05-23 15:28] LABS: Influenza A PCR NEGATIVE (Negative); Influenza B PCR NEGATIVE (Negative); Resp Syncy Virus RNA Qual PCR NEGATIVE (Negative); SARS COV2 PCR INHOUSE NEGATIVE (Negative)
== END 2022-05-23 10:20 | disposition home or self-care (01) ==
LOC: HO.LAB 10:19
PROVIDERS: Visit Provider Hospitalist
DX: Z20.822 Contact with and (suspected) exposure to COVID-19 (principal); B34.9 Viral infection, unspecified
CPT/HCPCS: 0241U

== ENCOUNTER 2023-01-07 15:53 | Outpatient (AMB) | payer OTHER, SELFPAY ==
[2023-01-07 16:32] VITALS: BP 112/72; PULSE 66; O2SAT 99
--- NOTE | 2023-01-07 16:32 | AM.OFFWIN_ITS ---
Intake Vital Signs 01/07/23 16:32 Weight 131 lb BP 112/72 Blood Pressure Location Lt brachial Position Sitting Pulse 66 Pulse Source Pulse Oximeter Pulse Oximetry (%) 99 Oxygen Delivery Method Room Air Intake Visit Reasons: EST/WC wrist pain RT (lobby) Intake Note: Patient here because she was lifting and pushing and on friday she heard a pop in her wrist and has been painful since. Patient Tobacco Use Status: Former Tobacco user (12/2021) Allergies melatonin Allergy (Unknown, Verified 01/07/23 16:48) pruritus Medication List - Last Reconciled 01/07/23 by Kirby Arita MD fluticasone propionate 50 mcg/actuation (Flonase Allergy Relief) 2 sprays intranasal DAILY 14 days miconazole nitrate (Miconazole-7) 100 mg vaginal BEDTIME 7 days HPI EST/WC wrist pain RT (lobby) HPI Details 32-year-old female presents to the [facility] for a sick visit. Patient is complaining of right wrist pain for the past 2 days. Patient uses her hands to push heavy objects at work. [facility] Medical History Encounter for physical examination GERD (gastroesophageal reflux disease) Left knee pain Surgical History History of cone biopsy of cervix History of surgery Family History Father No problems noted. Mother Essential hypertension Thyroid disease Asthma Social History Housing: House Alcohol intake: current Alcohol intake frequency: a few times a week Alcohol type: wine Patient Tobacco Use Status: Former Tobacco user (12/2021) Tobacco use type: Cigarette Cigarettes Per Day: 2 e-Cigarette/Vaping Use: Never Used Second Hand Smoke Exposure: No service: No Current occupational status: employed Current occupational exposures/hazards: No Cognitive needs: No Hearing needs: No Vision needs: No Physical Exam Vital Signs: Last Vital Signs Pulse 66 01/07/23 16:32 BP 112/72 01/07/23 16:32 Pulse Ox 99 01/07/23 16:32 Oxygen Delivery Method Room Air 01/07/23 16:32 Extrem Other: Right wrist: Sharp pain elicited on the dorsum of the wrist. Unable to fully flex or extend the hand at the wrist. Assessment & Plan Assessment & Plan (1) Sprain of right wrist: Code(s): S63.501A - Unspecified sprain of right wrist, initial encounter Plan: X-ray images were personally reviewed by me. No fractures seen. Note provided where she could not use the right upper extremity. Patient was advised to use the splint and the nonsteroidals. Orders: Orders XR wrist RT min 3V 01/07/23 S63.501A - Unspecified sprain of right wrist, initial encounter Medications: New meloxicam 15 mg PO DAILY 14 tabs 0RF Coding Level of Care Code Est Pt Level 4 (96555) Diagnoses Sprain of right wrist S63.501A
== END 2023-01-08 08:32 | disposition home or self-care (01) ==
PROVIDERS: PCP Internal Medicine; Visit Provider Internal Medicine
DX: S63.501A Unspecified sprain of right wrist, initial encounter (principal)
CPT/HCPCS: 99214

== ENCOUNTER 2023-01-07 16:56 | Outpatient (REF) | payer OTHER, SELFPAY | END 2023-01-07 16:57 | disposition home or self-care (01) | LOC: HO.HMGCX 16:56 | PROVIDERS: PCP Internal Medicine; Visit Provider Internal Medicine | DX: S63.501A Unspecified sprain of right wrist, initial encounter (principal) | CPT/HCPCS: 73110 ==

== ENCOUNTER → 2023-01-08 09:40 | Outpatient (BNVA) | payer OTHER, SELFPAY | PROVIDERS: PCP Internal Medicine; Visit Provider Internal Medicine | DX: S63.592A Other specified sprain of left wrist, initial encounter (principal); X50.0XXA Overexertion from strenuous movement or load, initial encounter | CPT/HCPCS: 99202 ==

== ENCOUNTER → 2023-01-20 07:49 | Outpatient (BNVA) | payer OTHER, SELFPAY | PROVIDERS: PCP Internal Medicine; Visit Provider Internal Medicine | DX: S63.8X1A Sprain of other part of right wrist and hand, initial encounter (principal); X50.0XXA Overexertion from strenuous movement or load, initial encounter | CPT/HCPCS: 99213 ==

== ENCOUNTER → 2023-01-27 08:04 | Outpatient (BNVA) | payer OTHER, SELFPAY | PROVIDERS: PCP Internal Medicine; Visit Provider Internal Medicine | DX: S63.501A Unspecified sprain of right wrist, initial encounter (principal); X50.0XXA Overexertion from strenuous movement or load, initial encounter | CPT/HCPCS: 99213 ==

== ENCOUNTER 2023-06-10 15:11 | Outpatient (REF) | payer OTHER, MEDICAID, SELFPAY ==
[2023-06-10 17:24] LABS: Appearance Urine Clear; Color Urine Yellow; Glucose Urine UA Negative (Negative); Leukocyte Esterase Urine Negative (Negative); Nitrite Urine Negative (Negative); Specific Gravity - Urine >= 1.030 (1.005-1.025); Urine Blood Negative (Negative); Urine Ketones Trace mg/dL (Negative); Urine Protein Negative (Neg-Trace)
== END 2023-06-10 15:12 | disposition home or self-care (01) ==
LOC: HO.LAB 15:11
PROVIDERS: PCP Internal Medicine; Visit Provider Internal Medicine
DX: R39.9 Unspecified symptoms and signs involving the genitourinary system (principal)
CPT/HCPCS: 81003

== ENCOUNTER → 2023-10-16 11:23 | Outpatient (BNVA) | payer OTHER, SELFPAY | PROVIDERS: PCP Internal Medicine; Visit Provider Physician Assistant Medical | DX: Z77.21 Contact with and (suspected) exposure to potentially hazardous body fluids (principal); Z01.10 Encounter for examination of ears and hearing without abnormal findings; H44.131 Sympathetic uveitis, right eye | CPT/HCPCS: 92002; 99203 ==

== ENCOUNTER 2024-01-12 15:30 | Outpatient (AMB) | payer OTHER, MEDICAID, SELFPAY ==
[2024-01-12 15:31] VITALS: BP 122/80; BMI 26.5
--- NOTE | 2024-01-12 15:31 | MHC.PC.OV ---
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 Required: No Accompanied by: Self / Same As Patient Allergies melatonin Allergy (Unknown, Verified 01/12/24 15:39) pruritus Medication List - Last Reconciled 01/12/24 by Farzaneh Gomez MD No Known Home Meds Tobacco use date assessed: 01/12/24 Dental Screening Dental Screen Date: 01/12/24 Did you have a dental visit in the last 12 months?: No Did you have a dental problem in the last 6 months where you did not have access to dental care?: No Was dental information given to patient?: Patient has dentist HPI HPI Comments History of Present Illness Details This is a 33-year-old female that comes today complaining of chronic diarrhea that started 2-3 years ago every time she eats anything. This is associated with periumbilical abdominal pain and has episodes of diarrhea multiple times a day. No blood in the stools. No fever. The color is brown or green. No recent travel. No new foods. [facility] Medical History (Updated 01/12/24 @ 15:50 by Farzaneh Gomez MD) Left knee pain Encounter for physical examination GERD (gastroesophageal reflux disease) Surgical History History of surgery History of cone biopsy of cervix Family History Father No problems noted. Mother Essential hypertension Thyroid disease Asthma Social History Housing: House Alcohol intake: current Alcohol intake frequency: a few times a week Alcohol type: wine Patient Tobacco Use Status: Former Tobacco user (12/2021) Tobacco use type: Cigarette Cigarettes Per Day: 2 e-Cigarette/Vaping Use: Never Used Second Hand Smoke Exposure: No service: No Current occupational status: employed Current occupational exposures/hazards: No Cognitive needs: No Hearing needs: No Vision needs: No Questionnaire PHQ-9 Over the last 2 weeks, how often have you been bothered by any of the following problems? 1. Little interest or pleasure in doing things: not at all 2. Feeling down, depressed, or hopeless: not at all 3. Trouble falling or staying asleep, or sleeping too much: not at all 4. Feeling tired or having little energy: not at all 5. Poor appetite or overeating: not at all 6. Feeling bad about yourself - or that you are a failure or have let yourself or your family down: not at all 7. Trouble concentrating on things, such as reading the newspaper or watching television: not at all 8. Moving or speaking so slowly that other people could have noticed. Or the opposite - being so fidgety or restless that you have been moving around a lot more than usual: not at all 9. Thoughts that you would be better off or of hurting yourself in some way: not at all Total score: 0 Depression Screening Interpretation: Negative Depression Screening Done: Yes 21088 - PHQ-9 Billing: Yes Source: Developed by Drs. Gera Rodas, Ruth Ann Lr, Walter Urrutia and colleagues, with an educational destiney from [facility]. Thrive Questionnaire Date Thrive assessed: 06/14/21 Are you currently unemployed and looking for a job?: Yes AUDIT C Alcohol Use Questionnaire (AUDIT-C) 1. How often do you have a drink containing alcohol?: Monthly or less 2. How many drinks containing alcohol do you have on a typical day when you are drinking?: 1 or 2 3. How often do you have six or more drinks on one occasion?: Never Total Score: 1 Score Reviewed/Action Taken: No FAUZIA-7 AMB Questionnaire FAUZIA-7 Date FAUZIA - 7 assessed: 06/14/21 Feeling nervous, anxious, or on edge: 0 = Not at all Not being able to stop or control worryin = Not at all Worrying too much about different things: 0 = Not at all Trouble relaxin = Not at all Being so restless that it is hard to sit still: 0 = Not at all Becoming easily annoyed or irritable: 0 = Not at all Feeling afraid as if something awful might happen: 0 = Not at all Total FAUZIA-7 score (0-4 normal; 5-9 mild; 10-14 moderate; 15-21 severe): 0 Source: Developed by Drs. Gera Rodas, Ruth Ann Lr, Walter Urrutia and colleagues, with an educational destiney from [facility]. FAUZIA-7 Assessment Billing FAUZIA-7 Assessment Tool: FAUZIA-7 Assessment 27770 Review of Systems Const All systems reviewed & are unremarkable except as noted in HPI and below Card Denies chest pain at rest, Denies chest pain with activity, Denies edema, Denies irregular heart rhythm, Denies claudication, Denies dyspnea, Denies dyspnea on exertion, Denies orthopnea, Denies paroxysmal nocturnal dyspnea and Denies slow heart rate Resp Denies cough, Denies dyspnea and Denies dyspnea on exertion GI Reports abdominal pain and Reports diarrhea Neuro Denies lack of coordination Physical exam (Primary Care) Vital Signs: Last Vital Signs BP 122/80 01/12/24 15:31 BMI result Body Mass Index 26.5 Tobacco/Smoking Status: Tobacco use Status Tobacco use date assessed 01/12/24 01/12/24 15:38 Patient Tobacco Use Status Former Tobacco user (12/202101/12/24 15:38 ) Tobacco use type Cigarette 01/12/24 15:38 e-Cigarette/Vaping Use Never Used 01/12/24 15:38 PHQ-9: PHQ-9 Score PHQ-9: Total score 0 01/12/24 15:52 Depression Screening Interpretation: Negative Thrive Assessment: Date of Thrive Assessment Date Thrive assessed 06/14/21 01/12/24 15:38 Resp Effort & Inspection: normal respiratory effort Auscultation: clear to auscultation bilaterally Cardio Jugular venous distension: no JVD Rate: regular rate Rhythm: regular rhythm Heart sounds: S1 normal heart sound present and S2 normal heart sound present GI Inspection: Yes normal to inspection Palpation (GI): Soft to palpation and nontender Auscultation: normal bowel sounds Extrem General: Yes full ROM Psych Appearance: grossly normal Office Procedures Flu Questionnaire Does the patient have a severe egg allergy?: No Immunizations Fluarix Triv [id number] (PF) 45 mcg (15 mcg x 3)/0.5 mL IM syringe Performing Provider: Farzaneh Gomez MD [facility] Documented (not given) by: BREE Rodriguez on 01/12/24 15:38 Reason Not Given: Patient Refused Coding Level of Care Code Est Pt Level 3 (67440) Complex EM visit Add On G2211 Diagnoses Chronic diarrhea K52.9 Periumbilical pain R10.33 Additional Codes FAUZIA-7 Assessment Billing - FAUZIA-7 Assessment Tool: FAUZIA-7 Assessment 63540 ([id number]) Time Spent (min) 19 Assessment & Plan Assessment & Plan (1) Chronic diarrhea: Code(s): K52.9 - Noninfective gastroenteritis and colitis, unspecified Category: Medical Plan: Labs and stool samples ordered. Referred to Gastroenterology. (2) Periumbilical pain: Code(s): R10.33 - Periumbilical pain Category: Medical Plan: Ultrasound of the abdomen ordered. Orders: Orders Influenza [id number] Immunization Today Z23 - Encounter for immunization H pylori Ag Stool Today R19.7 - Diarrhea, unspecified Leukocytes Stool Qualitative Today K52.9 - Noninfective gastroenteritis and colitis, unspecified Complete Blood Count Auto Diff Today D64.9 - Anemia, unspecified Thyroid Stimulating Hormone Today K52.9 - Noninfective gastroenteritis and colitis, unspecified Celiac Disease Panel Today K52.9 - Noninfective gastroenteritis and colitis, unspecified US abdomen complete Today K52.9 - Noninfective gastroenteritis and colitis, unspecified, R10.33 - Periumbilical pain Giardia Ag Stool EIA Today R19.7 - Diarrhea, unspecified Comprehensive Met. Panel Today K52.9 - Noninfective gastroenteritis and colitis, unspecified Referrals Gastroenterology Referral K52.9 - Noninfective gastroenteritis and colitis, unspecified
== END 2024-01-12 15:50 | disposition home or self-care (01) ==
PROVIDERS: PCP Internal Medicine; Visit Provider Internal Medicine
DX: K52.9 Noninfective gastroenteritis and colitis, unspecified (principal); R10.33 Periumbilical pain; Z23 Encounter for immunization

== ENCOUNTER 2024-01-12 15:30 | Outpatient (REF) | payer OTHER, MEDICAID, SELFPAY ==
[2024-01-12 16:07] LABS: MANUAL DIFF FLAG NO
[2024-01-12 16:29] LABS: Basophils Absolute Auto 0.1 X10*3/uL (0.0-0.2); Basophils Percent Auto 0.5 % (0-2); Eosinophils Absolute Auto 0.1 X10*3/uL (0.0-0.4); Hematocrit 35.8 % (37.0-47.0); Hemoglobin 12.2 g/dl (12.0-16.0); Imm Gran Abs Auto 0.04 X10*3/uL (0.00-0.03); Imm Gran Pct Auto 0.4 % (0.0-0.4); Lymphocytes Absolute Auto 1.4 X10*3/uL (1.2-4.9); Lymphocytes Percent Auto 14.1 % (20-40); Mean Corpuscular HGB Conc 34.1 g/dl (31.0-35.0); Mean Corpuscular Hemoglobin 28.6 pg (27.0-33.0); Mean Platelet Volume 10.5 fL (9.4-12.3); Monocytes Absolute Auto 0.6 X10*3/uL (0.1-1.2); Monocytes Percent Auto 5.6 % (2-11); Neutrophils Absolute Auto 7.7 x10*3/uL (2.0-8.3); Neutrophils Percent Auto 78.4 % (45-73); Platelet Count 316 X10*3/uL (160-400); Red Blood Count 4.26 X10*6/uL (4.20-5.50); Red Cell Distribution Width 13.4 % (11.0-16.0); White Blood Count 9.9 X10*3/uL (4.8-10.8)
[2024-01-12 16:59] LABS: Alanine Aminotransferase 23 U/L (0-31); Albumin Level 4.7 g/dL (3.5-5.0); Alkaline Phosphatase 84 U/L (39-117); Anion Gap 12 (12-20); Aspartate Amino Transferase 15 U/L (5-31); Bilirubin Total 0.3 mg/dL (0.0-1.0); Blood Urea Nitrogen 12 mg/dL (9-16); Calcium 9.3 mg/dL (8.4-10.2); Carbon Dioxide 25 mmol/L (22-29); Chloride 104 mmol/L (96-108); Estimated Glomerular Filt Rate > 60; Glucose Random 86 mg/dL (60-115); Sodium 137 mmol/L (135-145); Total Protein 7.5 g/dL (6.5-8.0)
[2024-01-12 17:15] LABS: Thyroid Stimulating Hormone 1.22 uIU/mL (0.32-4.0)
[2024-01-13 22:24] LABS: Immunoglobulin A 198 mg/dL (47-310); Transglutaminase IgA <1.0 U/mL
== END 2024-01-12 15:31 | disposition home or self-care (01) ==
LOC: HO.LAB 15:30
PROVIDERS: PCP Internal Medicine; Visit Provider Internal Medicine
DX: K52.9 Noninfective gastroenteritis and colitis, unspecified (principal); D64.9 Anemia, unspecified; R10.33 Periumbilical pain; Z23 Encounter for immunization
CPT/HCPCS: 36415; 80053; 82784; 84443; 85025; 86364; 90471; 96127; 99212

== ENCOUNTER 2024-01-22 08:39 | Outpatient (REF) | payer OTHER, MEDICAID, SELFPAY ==
--- NOTE | ~2024-01-22 | US_ITS ---
EXAMINATION: US ABDOMEN COMPLETE CLINICAL INFORMATION: Periumbilical pain, diarrhea. COMPARISON: None available. TECHNIQUE: Real-time imaging of the abdominal viscera. FINDINGS: PANCREAS: No peripancreatic fluid collections. INFERIOR VENA CAVA: Visualized portions demonstrated flow. LIVER: Normal echotexture. No solid or cystic lesion. Liver is not measured. No intrahepatic biliary ductal dilatation. . . GALLBLADDER: Fluid-filled without pericholecystic fluid collection or gallbladder wall thickening COMMON BILE DUCT: Measures 4 mm in diameter. RIGHT KIDNEY: 10 cm no solid or cystic lesion. No hydronephrosis. Cortical medullary junction is normal. LEFT KIDNEY: 10 cm. No hydronephrosis. No solid or cystic lesion. Corticomedullary junction is normal. SPLEEN: 10 cm. No solid or cystic lesion.. FREE FLUID: None. US/US abdomen complete IMPRESSION: No cholelithiasis. No ascites. No hydronephrosis. Electronically signed by: Ricardo Luna MD 01/28/2024 12:45 PM EDT
== END 2024-01-22 08:40 | disposition home or self-care (01) ==
LOC: HO.US 08:39
PROVIDERS: PCP Internal Medicine; Visit Provider Internal Medicine
DX: R10.33 Periumbilical pain (principal); K52.9 Noninfective gastroenteritis and colitis, unspecified
CPT/HCPCS: 76700

== ENCOUNTER → 2024-01-22 08:45 | Outpatient (BNV) | payer OTHER, MEDICAID, SELFPAY | PROVIDERS: PCP Internal Medicine; Visit Provider Radiology Diagnostic Radiology | DX: R10.33 Periumbilical pain (principal) | CPT/HCPCS: 76700 ==

== ENCOUNTER 2024-01-27 08:26 | Outpatient (AMB) | payer OTHER, MEDICAID, SELFPAY ==
--- NOTE | 2024-01-27 08:27 | MHC.PC.OV ---
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 Sometimes is diarrhea. No fever. Nausea associated with it. Certain foods can cause more abdominal pain and diarrhea. No recent travel. Stool sample still pending. Labs were unremarkable. Abdominal imaging still pending. No chest pain or shortness on breath. [facility] Medical History (Updated 01/27/24 @ 08:48 by Farzaneh Gomez MD) Left knee pain Encounter for physical examination GERD (gastroesophageal reflux disease) Surgical History History of surgery History of cone biopsy of cervix Family History Father No problems noted. Mother Essential hypertension Thyroid disease Asthma Social History Housing: House Alcohol intake: current Alcohol intake frequency: a few times a week Alcohol type: wine Patient Tobacco Use Status: Former Tobacco user (12/2021) Tobacco use type: Cigarette Cigarettes Per Day: 2 e-Cigarette/Vaping Use: Never Used Second Hand Smoke Exposure: No service: No Current occupational status: employed Current occupational exposures/hazards: No Cognitive needs: No Hearing needs: No Vision needs: No Questionnaire PHQ-9 Over the last 2 weeks, how often have you been bothered by any of the following problems? 1. Little interest or pleasure in doing things: not at all 2. Feeling down, depressed, or hopeless: not at all 3. Trouble falling or staying asleep, or sleeping too much: not at all 4. Feeling tired or having little energy: not at all 5. Poor appetite or overeating: not at all 6. Feeling bad about yourself - or that you are a failure or have let yourself or your family down: not at all 7. Trouble concentrating on things, such as reading the newspaper or watching television: not at all 8. Moving or speaking so slowly that other people could have noticed. Or the opposite - being so fidgety or restless that you have been moving around a lot more than usual: not at all 9. Thoughts that you would be better off or of hurting yourself in some way: not at all Total score: 0 Depression Screening Interpretation: Negative Depression Screening Done: Yes 03058 - PHQ-9 Billing: Yes Source: Developed by Drs. Gera Rodas, Ruth Ann Lr, Walter Urrutia and colleagues, with an educational destiney from [employer]. Thrive Questionnaire Date Thrive assessed: 01/27/24 I am a: Patient What is your living situation today?: I have a steady place to live Within the past 12 months, did the food you bought not last and you didn't have the money to get more?: Never true Within the past 12 months, did you worry whether your food would run out before you got money to buy more?: Never true Do you have trouble paying for medicines?: No Do you have trouble getting transportation to medical appointments?: No Do you have trouble paying your heating and electricity bill?: No Do you have trouble taking care of your child, family member or friend?: No Do you have trouble with day-to-day activities such as bathing, preparing meals, shopping, managing finances, etc.?: No Are you currently unemployed and looking for a job?: No Are you interested in more education?: No Please select the resources that you would like help with: None Currently or been in a relationship where the following occur: No concerns reported THRIVE Score: 0 FAUZIA-7 AMB Questionnaire FAUZIA-7 Date FAUZIA - 7 assessed: 01/27/24 Feeling nervous, anxious, or on edge: 0 = Not at all Not being able to stop or control worryin = Not at all Worrying too much about different things: 0 = Not at all Trouble relaxin = Not at all Being so restless that it is hard to sit still: 0 = Not at all Becoming easily annoyed or irritable: 0 = Not at all Feeling afraid as if something awful might happen: 0 = Not at all Total FAUZIA-7 score (0-4 normal; 5-9 mild; 10-14 moderate; 15-21 severe): 0 Source: Developed by Drs. Gera Rodas, Ruth Ann Lr, Walter Urrutia and colleagues, with an educational destiney from [employer]. FAUZIA-7 Assessment Billing FAUZIA-7 Assessment Tool: FAUZIA-7 Assessment 49816 Review of Systems Const All systems reviewed & are unremarkable except as noted in HPI and below Card Denies chest pain at rest, Denies chest pain with activity, Denies edema, Denies irregular heart rhythm, Denies claudication, Denies dyspnea, Denies dyspnea on exertion, Denies orthopnea, Denies paroxysmal nocturnal dyspnea and Denies slow heart rate Resp Denies cough, Denies dyspnea and Denies dyspnea on exertion GI Reports abdominal pain, Denies change in bowel habits, Denies excessive flatus, Reports dyspepsia, Reports heartburn, Reports nausea and Denies vomiting Denies urinary incontinence, Denies urinary hesitancy and Denies urinary urgency Physical exam (Primary Care) Vital Signs: Last Vital Signs BP 122/70 01/27/24 08:31 BMI result Body Mass Index 26.1 Tobacco/Smoking Status: Tobacco use Status Tobacco use date assessed 01/12/24 01/12/24 15:38 Patient Tobacco Use Status Former Tobacco user 01/12/24 15:38 Tobacco use type Cigarette 01/12/24 15:38 e-Cigarette/Vaping Use Never Used 01/12/24 15:38 Depression Screening Interpretation: Negative Thrive Assessment: Date of Thrive Assessment Date Thrive assessed 06/14/21 01/12/24 15:38 Currently or been in a relationship where the following occur: No concerns reported Resp Effort & Inspection: normal respiratory effort Auscultation: clear to auscultation bilaterally Cardio Jugular venous distension: no JVD Rate: regular rate Rhythm: regular rhythm Heart sounds: S1 normal heart sound present and S2 normal heart sound present GI Inspection: Yes normal to inspection Palpation (GI): Soft to palpation and nontender Auscultation: normal bowel sounds Extrem General: Yes full ROM Coding Level of Care Code Est Pt Level 3 (50072) Complex EM visit Add On G2211 Diagnoses Generalized abdominal pain R10.84 Additional Codes FAUZIA-7 Assessment Billing - FAUZIA-7 Assessment Tool: FAUZIA-7 Assessment 37638 ([id number]) Time Spent (min) 19 Assessment & Plan Assessment & Plan (1) Generalized abdominal pain: Code(s): R10.84 - Generalized abdominal pain Category: Medical Plan: Start omeprazole. Referred to GI. Medications: New omeprazole 20 mg PO DAILY 90 days 90 caps 1RF
[2024-01-27 08:31] VITALS: BP 122/70; BMI 26.1
== END 2024-01-27 08:45 | disposition home or self-care (01) ==
LOC: HO.HMCH 08:26
PROVIDERS: PCP Internal Medicine; Visit Provider Internal Medicine
DX: R10.84 Generalized abdominal pain (principal)

== ENCOUNTER → 2024-01-27 08:26 | Outpatient (BNVA) | payer OTHER, MEDICAID, SELFPAY | PROVIDERS: PCP Internal Medicine; Visit Provider Internal Medicine | DX: R10.84 Generalized abdominal pain (principal) | CPT/HCPCS: 96127 ==

== ENCOUNTER 2024-01-28 09:26 | Emergency (ER) | payer OTHER, MEDICAID, SELFPAY ==
--- NOTE | ~2024-01-28 | XR_ITS ---
EXAMINATION: XR CHEST CLINICAL INFORMATION: Shortness of breath COMPARISON: October 2021. TECHNIQUE: 2 views of the chest were obtained. FINDINGS: No airspace consolidation or pneumothorax seen. Hilar regions and pulmonary vascularity unremarkable. No evidence for pneumomediastinum. Slight blunting in the left costophrenic angle and posterior sulci which may reflect small effusions or pleural reaction. XR/XR chest 2V IMPRESSION: No airspace infiltrate seen. Findings suggestive of small pleural effusions. Electronically signed by: Will Stacy MD 01/28/2024 11:10 AM EDT
--- NOTE | 2024-01-28 09:28 | ECG_ITS ---
Test Reason : chest pain Blood Pressure : / mmHG Vent. Rate : 080 BPM Atrial Rate : 080 BPM P-R Int : 166 ms QRS Dur : 074 ms QT Int : 374 ms P-R-T Axes : 071 075 039 degrees QTc Int : 431 ms Normal sinus rhythm Normal ECG When compared with ECG of 20-NOV-2021 12:13, No significant change was found Referred By: Generic ED Physician Electronically Signed By:SHYAM BEAL
[2024-01-28 09:35] VITALS: BP 129/90; PULSE 77; RESP 16; TEMP 36.8; O2SAT 99; BMI 26.0
[2024-01-28 09:59] LABS: MANUAL DIFF FLAG NO
[2024-01-28 10:01] LABS: Basophils Percent Auto 0.3 % (0-2); Eosinophils Percent Auto 0.4 % (0-4); Hematocrit 39.6 % (37.0-47.0); Imm Gran Abs Auto 0.03 X10*3/uL (0.00-0.03); Imm Gran Pct Auto 0.4 % (0.0-0.4); Lymphocytes Absolute Auto 1.2 X10*3/uL (1.2-4.9); Lymphocytes Percent Auto 17.3 % (20-40); Mean Corpuscular HGB Conc 32.8 g/dl (31.0-35.0); Mean Corpuscular Hemoglobin 28.2 pg (27.0-33.0); Mean Corpuscular Volume 85.9 fL (80.0-98.0); Mean Platelet Volume 11.4 fL (9.4-12.3); Monocytes Absolute Auto 0.4 X10*3/uL (0.1-1.2); Monocytes Percent Auto 5.3 % (2-11); Neutrophils Absolute Auto 5.2 x10*3/uL (2.0-8.3); Neutrophils Percent Auto 76.3 % (45-73); Platelet Count 249 X10*3/uL (160-400); Red Blood Count 4.61 X10*6/uL (4.20-5.50); Red Cell Distribution Width 13.7 % (11.0-16.0); White Blood Count 6.8 X10*3/uL (4.8-10.8)
[2024-01-28 10:16] LABS: Alanine Aminotransferase 21 U/L (0-31); Albumin Level 4.6 g/dL (3.5-5.0); Alkaline Phosphatase 68 U/L (39-117); Anion Gap 12 (12-20); Aspartate Amino Transferase 16 U/L (5-31); Bilirubin Direct 0.1 mg/dL (0.0-0.5); Bilirubin Total 0.4 mg/dL (0.0-1.0); Blood Urea Nitrogen 10 mg/dL (9-16); Carbon Dioxide 21 mmol/L (22-29); Chloride 109 mmol/L (96-108); Creatinine Clr Calc Pharmacy 77.4; Estimated Glomerular Filt Rate > 60; Glucose Random 110 mg/dL (60-115); Lipase 12 U/L (8-78); Sodium 138 mmol/L (135-145); Total Protein 7.5 g/dL (6.5-8.0)
--- NOTE | 2024-01-28 10:30 | ED_ITS ---
HPI - General Adult General Chief complaint: Abdominal Pain Stated complaint: cp-sob Time Seen by Provider: 01/28/24 10:29 Source: patient Mode of arrival: ambulatory Limitations: no limitations History of Present Illness ED Provider: Fatmata Jurado PA-C HPI narrative: Patient is a 34 year old assigned female at with a history of GERD presenting to the emergency department today with epigastric pain that radiates into her chest. Patient states that she has been having intermittent mid sternal chest pain that starts in her epigastric area. Patient denies any dizziness, lightheadedness, nausea, vomiting, fever, chills, blurry vision, double vision, loss of vision, difficulty breathing, shortness of breath, back pain, night sweats, pain with urination, increased urinary frequency, increased urinary urgency, blood in her urine or stool, syncope or a near syncopal episode, recent trauma or falls, bowel incontinence, bladder incontinence, or any other complaints at this time. Relieving factors: none Exacerbating factors: none Associated symptoms: chest pain Treatments prior to arrival: none Related Data Previous Rx's ?Medication ?Instructions ?Recorded omeprazole 20 mg capsule,delayed 20 mg PO DAILY 90 days #90 caps 01/27/24 release Allergies Allergy/AdvReac Type Severity Reaction Status Date / Time melatonin Allergy Unknown pruritus Verified 01/28/24 09:39 Review of Systems 2 Constitutional: Constitutional: Reports no additional constitutional complaints, Denies chills, Denies fever(s) and Denies night sweats Eyes: Eyes: Reports no additional eye complaints, Denies blurry vision, Denies change in vision, Denies diplopia, Denies eye discharge, Denies loss of vision and Denies eye pain ENT: Denies dizziness Cardiovascular: Cardiovascular: Reports no additional cardiovascular complaints, Reports chest pain, Denies lightheadedness, Denies Loss of Consciousness and Denies dyspnea Respiratory: Respiratory: Reports no additional respiratory complaints and Denies dyspnea Gastrointestinal: Gastrointestinal: Reports no additional gastrointestinal complaints, Reports abdominal pain, Denies melena, Denies hematochezia, Denies change in bowel habits and Denies change in stool character Genitourinary: Genitourinary: Denies hematuria, Denies urinary frequency, Denies dysuria, Denies urinary incontinence, Denies urinary hesitancy and Denies urinary urgency Musculoskeletal: Musculoskeletal: Reports no additional musculoskeletal complaints, Denies numbness and Denies tingling Neurologic: Denies dizziness, Denies loss of vision, Denies numbness and Denies tingling Psychiatric: Psychiatric: Reports no additional psychiatric complaints Endocrine: Endocrine: Reports no additional endocrine complaints Hematologic/Lymphatic: Hematologic/Lymphatic: Reports no additional hematologic/lymphatic complaints Allergic/Immunologic: Allergic/Immunologic: Reports no additional allergic/immunologic complaints PMFSH Past Medical History Attestation statement: The following information was validated with the patient. Source: old records reviewed and nursing notes reviewed Medical History Left knee pain Encounter for physical examination GERD (gastroesophageal reflux disease) Surgical History History of surgery History of cone biopsy of cervix Family History Family History Father No problems noted. Mother Essential hypertension Thyroid disease Asthma Social History Social History Housing: House Alcohol intake: current Alcohol intake frequency: a few times a week Alcohol type: wine Patient Tobacco Use Status: Former Tobacco user (12/2021) Tobacco use type: Cigarette Cigarettes Per Day: 2 e-Cigarette/Vaping Use: Never Used Second Hand Smoke Exposure: No Advance Directives: No Advance Directives Information Provided: Yes service: No Current occupational status: employed Current occupational exposures/hazards: No Cognitive needs: No Hearing needs: No Vision needs: No Physical Exam ED Vital Signs: Vital Signs - 24 hr 01/28/24 09:35 01/28/24 12:00 Temperature 98.3 F 98.7 F Pulse Rate 77 69 Respiratory Rate 16 16 Blood Pressure 129/90 H 108/72 Pulse Oximetry 99 100 Oxygen Delivery Method Room Air Room Air BMI result Body Mass Index 26.0 Const General: cooperative, no acute distress, alert and awake Nutritional Appearance: well nourished Orientation/consciousness: patient oriented x3 Limitations: no limitations HENMT Head: Yes normal to inspection and Yes atraumatic Ears: hearing grossly normal bilaterally and external ears normal General nose exam: Normal external nose present, no nasal discharge noted and no epistaxis Face and sinus: Yes normal facial exam, No abrasion and No laceration Mouth: Normal oral and palatal mucosa present, no drooling and no muffled voice Eyes General: appearance normal, both eyes and all related structures Periorbital: periorbital findings normal Eyelids: Yes eyelids normal Conjunctivae: conjunctivae normal Pupils: Equal, round and reactive pupils present EOM: EOMs intact bilaterally Neck Neck: Yes normal visual inspection, Yes full ROM and Yes no lymphadenopathy Chest Chest palpation & inspection: normal inspection of the chest Resp Effort & Inspection: normal respiratory effort and able to speak in complete sentences GI Inspection: Yes normal to inspection Palpation (GI): Soft to palpation, not firm, nontender and no guarding Neuro General: patient oriented x3 and moves all extremities Cranial nerves: Yes Equal, round and reactive pupils present Cognition (Neuro): normal cognition Extrem General: Yes normal to inspection, Yes full ROM and Yes capillary refill normal Psych Appearance: grossly normal Mental Status: mental status grossly normal Affect: normal affect Attitude: cooperative Thought process: Normal thought process present Thought content: Normal thought content present Insight: Good insight present (Psych) Medications Administered Discontinued Medications Generic Name Dose Route Start Last Admin Trade Name Erickson PRN Reason Stop Dose Admin Omeprazole 40 mg 01/28/24 10:49 01/28/24 11:19 Omeprazole 40 Mg Capsule.Dr PO 01/28/24 10:50 40 mg ONCE ONE Administration Sucralfate 1 gm 01/28/24 10:49 01/28/24 11:19 Sucralfate Oral Suspension 1 Gm/10 Ml Oral.Susp PO 01/28/24 10:50 1 gm ONCE ONE Administration Medical Decision Making Medical Decision Making [facility] Narrative: Patient is a 34 year old assigned female at with a history of GERD presenting to the emergency department today with epigastric and chest pain. Patient's physical exam was unremarkable. Patient's blood work was unremarkable. Patient's EKG was unremarkable. Patient's chest x-ray showed no acute process. I explained my physical exam findings as well as all test results to the patient. I answered all questions asked by the patient. I stressed the importance of the patient taking her medication as directed (either prescribed or as the over the counter packaging recommends). I stressed the importance of the patient following up with her primary care provider and a GI specialist. I stressed the importance of the patient returning to the emergency department immediately if her symptoms were to worsen or if she were to develop any dizziness, shortness of breath, difficulty breathing, chest pain, blurry vision, loss of vision, nausea, vomiting, abdominal pain, fever, chills, back pain, or any other complaints. Patient verbalized agreement and understanding with this treatment plan and discharge. Differential Diagnosis Differential Diagnoses: The differential diagnosis associated with the presentation includes Epigastric pain Atypical chest pain GERD Admission/Observation Consideration of admission/observation: Escalation of care including admission/observation considered Patient would have been admitted to the hospital had her work up had any findings where hospital admission was appropriate and her clinical presentation warranted hospital admission. Lab Data [facility] Lab Attestation statement: I reviewed the patient's lab results. My interpretation of these results are in the [facility] Rationale portion of this note. 01/28/24 09:48 01/28/24 09:48 Labs: Lab Results 01/28/24 01/28/24 Range/Units 09:48 10:46 WBC 6.8 (4.8-10.8) X10*3/uL RBC 4.61 (4.20-5.50) X10*6/uL Hgb 13.0 (12.0-16.0) g/dl Hct 39.6 (37.0-47.0) % MCV 85.9 (80.0-98.0) fL MCH 28.2 (27.0-33.0) pg MCHC 32.8 (31.0-35.0) g/dl RDW 13.7 (11.0-16.0) % Plt Count 249 (160-400) X10*3/uL MPV 11.4 (9.4-12.3) fL Immature Gran % (Auto) 0.4 (0.0-0.4) % Neut % (Auto) 76.3 H (45-73) % Lymph % (Auto) 17.3 L (20-40) % Lares % (Auto) 5.3 (2-11) % Eos % (Auto) 0.4 (0-4) % Baso % (Auto) 0.3 (0-2) % Lymph # (Auto) 1.2 (1.2-4.9) X10*3/uL Lares # (Auto) 0.4 (0.1-1.2) X10*3/uL Eos # (Auto) 0.0 (0.0-0.4) X10*3/uL Baso # (Auto) 0.0 (0.0-0.2) X10*3/uL Abs Immat Gran (auto) 0.03 (0.00-0.03) X10*3/uL Absolute Neuts (auto) 5.2 (2.0-8.3) x10*3/uL Absolute Nucleated RBC 0.000 (0.0-0.012) X10*3/uL Nucleated RBC % (auto) 0.0 (0.0-0.2) /100WBC Sodium 138 (135-145) mmol/L Potassium 4.0 (3.3-5.1) mmol/L Chloride 109 H (96-108) mmol/L Carbon Dioxide 21 L (22-29) mmol/L Anion Gap 12 (12-20) BUN 10 (9-16) mg/dL Creatinine 0.78 (0.5-1.4) mg/dL Estim Creat Clear Calc 77.4 Estimated GFR > 60 Random Glucose 110 (60-115) mg/dL Calcium 9.0 (8.4-10.2) mg/dL Total Bilirubin 0.4 (0.0-1.0) mg/dL Direct Bilirubin 0.1 (0.0-0.5) mg/dL AST 16 (5-31) U/L ALT 21 (0-31) U/L Alkaline Phosphatase 68 (39-117) U/L Total Protein 7.5 (6.5-8.0) g/dL Albumin 4.6 (3.5-5.0) g/dL Lipase 12 (8-78) U/L Influenza Type A (PCR) NEGATIVE (Negative) Influenza Type B (PCR) NEGATIVE (Negative) RSV RNA Qual (PCR) NEGATIVE (Negative) SARS-CoV-2 RNA (RT-PCR) NEGATIVE (Negative) Independent Interpretation I performed an independent interpretation of an: EKG and Plain X-Ray Interpretation: My interpretation is in agreement with the radiologist's impression of this imaging study. L EXAMINATION: XR CHEST CLINICAL INFORMATION: Shortness of breath COMPARISON: October 2021. TECHNIQUE: 2 views of the chest were obtained. FINDINGS: No airspace consolidation or pneumothorax seen. Hilar regions and pulmonary vascularity unremarkable. No evidence for pneumomediastinum. Slight blunting in the left costophrenic angle and posterior sulci which may reflect small effusions or pleural reaction. XR/XR chest 2V IMPRESSION: No airspace infiltrate seen. Findings suggestive of small pleural effusions. Electronically signed by: Will Stacy MD 01/28/2024 11:10 AM EDT RP Dictated By: Will Stacy Signed By: Electronically signed by Will Stacy 01/28/24 1110 Vent. Rate: 080 BPM Atrial Rate: 080 BPM P-R Int: 166 ms QRS Dur: 074 ms QT Int: 374 ms P-R-T Axes: 071 075 039 degrees QTc Int: 431 ms Normal sinus rhythm Normal ECG When compared with ECG of 20-NOV-2021 12:13, No significant change was found DD/ [id number] Radiology Impression Discussion of test interpretation with radiology: I have reviewed the radiologist's reading. Discharge Plan Discharge Clinical Impression: Atypical chest pain, Acute epigastric pain Patient Disposition: Home, Self-Care Instructions: Chest Pain (DC), Epigastric Pain (ED) Additional Instructions: Follow up with your primary care provider and a GI specialist. Return to the emergency department immediately if your symptoms worsen or if you develop any dizziness, shortness of breath, difficulty breathing, chest pain, blurry vision, loss of vision, nausea, vomiting, abdominal pain, fever, chills, back pain, or any other complaints. Prescriptions: No Action omeprazole 20 mg capsule,delayed release(DR/EC) 20 mg PO DAILY 90 Days Qty: 90 1RF Referrals: [facility] G[facility] [Provider Group] (Call to establish and follow up with a GI specialist. ) Farzaneh Levi MD [Primary Care Provider] - Stand Alone Forms: Work/School Release Print Language: Maori
[2024-01-28] MEDS: Sucralfate Oral Suspension 1 GM/10 ML ORAL.SUSP PO (11:19)
[2024-01-28] MEDS: Omeprazole 40 MG CAPSULE.DR PO (11:19)
[2024-01-28 11:33] LABS: Influenza A PCR NEGATIVE (Negative); Influenza B PCR NEGATIVE (Negative); Resp Syncy Virus RNA Qual PCR NEGATIVE (Negative); SARS COV2 PCR INHOUSE NEGATIVE (Negative)
[2024-01-28 12:00] VITALS: BP 108/72; PULSE 69; RESP 16; TEMP 37.1; O2SAT 100
== END 2024-01-28 12:09 | disposition home or self-care (01) ==
PROVIDERS: Physician Assistant Medical; Emergency Provider Emergency Medicine Emergency Medical Services; PCP Internal Medicine
DX: R07.89 Other chest pain (principal); R10.13 Epigastric pain; K21.9 Gastro-esophageal reflux disease without esophagitis; Z03.818 Encounter for observation for suspected exposure to other biological agents ruled out
CPT/HCPCS: 0241U; 36415; 71046; 80048; 80076; 83690; 85025; 93005; 99283

== ENCOUNTER → 2024-01-28 09:28 | Outpatient (BNV) | payer OTHER, MEDICAID, SELFPAY | PROVIDERS: Emergency Provider Emergency Medicine Emergency Medical Services; PCP Internal Medicine; Visit Provider Internal Medicine | DX: R07.9 Chest pain, unspecified (principal) | CPT/HCPCS: 93010 ==

== ENCOUNTER → 2024-05-20 11:43 | Outpatient (BNVA) | payer OTHER, SELFPAY | PROVIDERS: PCP Internal Medicine; Visit Provider Physician Assistant Medical | DX: S80.02XA Contusion of left knee, initial encounter (principal); S70.12XA Contusion of left thigh, initial encounter; W18.09XA Striking against other object with subsequent fall, initial encounter | CPT/HCPCS: 73502; 73564; 99203 ==

== ENCOUNTER → 2024-05-25 10:30 | Outpatient (BNVA) | payer OTHER, SELFPAY | PROVIDERS: PCP Internal Medicine; Visit Provider Physician Assistant Medical | DX: S70.12XA Contusion of left thigh, initial encounter (principal); S80.02XA Contusion of left knee, initial encounter; M53.3 Sacrococcygeal disorders, not elsewhere classified; W18.09XA Striking against other object with subsequent fall, initial encounter | CPT/HCPCS: 99213 ==

== ENCOUNTER → 2024-05-28 12:35 | Outpatient (BNVA) | payer SELFPAY | PROVIDERS: PCP Internal Medicine | DX: S80.02XA Contusion of left knee, initial encounter (principal); S70.12XA Contusion of left thigh, initial encounter; W18.09XA Striking against other object with subsequent fall, initial encounter ==

== ENCOUNTER → 2024-06-01 10:48 | Outpatient (BNVA) | payer SELFPAY | PROVIDERS: PCP Internal Medicine; Visit Provider Physician Assistant Medical | DX: S70.12XD Contusion of left thigh, subsequent encounter (principal); S80.02XD Contusion of left knee, subsequent encounter; W18.09XD Striking against other object with subsequent fall, subsequent encounter | CPT/HCPCS: 99213 ==

== ENCOUNTER → 2024-06-02 11:51 | Outpatient (BNVA) | payer SELFPAY | PROVIDERS: PCP Internal Medicine | DX: Z02.6 Encounter for examination for insurance purposes (principal) ==

== ENCOUNTER 2024-06-04 08:51 | Outpatient (RCR) | payer OTHER, SELFPAY ==
--- NOTE | 2024-06-04 09:35 | MHC.PT.EP ---
[facility] [place] Office [place] Office [place] Office [address] Robin Marinelli [address] [phone] F: [phone] F: [phone] F: [phone] F: [phone] Physical Therapy Plan of Care Date of Evaluation: 06/04/24 Date of Surgery: n/a Diagnosis: L hip / SI injury Assessment: Patient is a 34 year old female presenting to PT with complaints of pain in L hip and low back. Pt reports onset of pain began 05/20/2024 due to tripping and falling over a cord at work. She presents today with impairments in pain, hip strength, tenderness to palpation, gait mechanics. 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 Pt expresses long-term goal of reducing pain, and is motivated to work towards this in PT. Clinical presentation today is most consistent with signs and sx associated with L hip pain and pt will benefit from skilled PT 2 week x 4 weeks to address the following problems and impairments noted upon evaluation: pain, hip strength, tenderness to palpation, gait mechanics. These problems limit the patient with the following functional activities: ambulating, stair negotiation, ADLs, work, lifting. The prescribed treatment plan of care is medically necessary. Co-morbidities of none were identified and taken into considerations of plan of care. Pt was educated on HEP, role of PT, prognosis, POC. Frequency and Duration: The patient will be seen 2 x week x 4 weeks Short Term Goals: Pt will demonstrate improved hip MMT strength by 1/3 grade in 2 weeks. Pt will demonstrate decreased tenderness to palpation in 2 weeks. Knuckle Bender Goals: Pt will demonstrate improved LEFI score by 9 points in 4 weeks for improved functional mobility. Pt will demonstrate ability to ambulate with min to no antalgia in 4 weeks for return to PLOF. Pt will demonstrate ability to lift with min to no pain in 4 weeks for improved tolerance to work activities. Treatment Plan: Modalities to reduce pain, spasms and effusion. Manual therapy to restore motion and function. Therapeutic exercise to improve strength and flexibility. Neuromuscular re-education for posture and balance. Therapeutic activities to return to functional activities of daily living. Electronically signed by: Rizwana Frazier, PT, DPT, ATC Please sign and return to therapist. Thank you for your referral.
--- NOTE | 2024-06-09 11:25 | MHC.PT.DC ---
[facility] [place] Office [place] Office [place] Office [address] [phone] F: [phone] F: [phone] F: [phone] F: [phone] Physical Therapy Discharge Report Diagnosis: L hip / SI injury Date of Surgery: n/a Date of Evaluation: 06/04/24 Date of Discharge: 06/09/24 Treatments to Date: 1 Cancellations to Date: 0 No Shows to Date: 2 Discharge Status: Visit Non-compliance Discharge Summary: Pt has failed to comply with [facility] attendance policy and no showed the last 2 visits. Pt to be d/c per policy. Electronically signed by: Rizwana Frazier PT, DPT, ATC Please sign and return to therapist. Thank you for your referral.
== END 2024-06-09 11:25 | disposition home or self-care (01) ==
LOC: HO.PTCHIC 08:51
PROVIDERS: PCP Internal Medicine; Visit Provider Physician Assistant Medical
DX: S79.912D Unspecified injury of left hip, subsequent encounter (principal)
CPT/HCPCS: 97110; 97161

== ENCOUNTER → 2024-06-15 10:41 | Outpatient (BNVA) | payer OTHER, SELFPAY | PROVIDERS: PCP Internal Medicine; Visit Provider Physician Assistant Medical | DX: S70.12XD Contusion of left thigh, subsequent encounter (principal); S80.02XD Contusion of left knee, subsequent encounter; W18.09XD Striking against other object with subsequent fall, subsequent encounter | CPT/HCPCS: 99213 ==

== ENCOUNTER → 2024-06-16 11:57 | Outpatient (BNVA) | payer OTHER, SELFPAY | PROVIDERS: PCP Internal Medicine | DX: Z02.6 Encounter for examination for insurance purposes (principal) ==

== ENCOUNTER 2024-06-24 17:35 | Outpatient (REF) | payer OTHER, SELFPAY ==
--- NOTE | ~2024-06-24 | MR_ITS ---
EXAMINATION: MRI LEFT KNEE WITHOUT CONTRAST HISTORY: BLUNT TRAUMA FROM FALL MILDLY UNSTABLE COMPARISON: Shubham is made with the prior examination dated 11/24/2019. Correlation is also made with plain films of the left knee dated 05/20/2024. TECHNIQUE: Coronal T1 and fat-suppressed proton density, sagittal proton density and fat-suppressed proton density, and axial fat suppressed T2 weighted MR images of the left knee were obtained. FINDINGS: Bone marrow: Bone marrow signal intensity is normal. Joint effusion: There is no joint effusion. Waldron's cyst: There is no Waldron's cyst. Articular cartilage: Intact Muscles/soft tissues: The visualized muscles demonstrate normal signal intensity. There is a 3.0 x 2.0 x 1.6 cm multiseptated fluid collection at the posterior aspect of the knee, just superior to the medial femoral condyle which likely represents a ganglion cyst. This is new from the prior study. Anterior cruciate ligament: Intact Posterior cruciate ligament: Intact Medial collateral ligament: Intact Lateral collateral ligament: Intact Medial meniscus: Intact Lateral meniscus: Intact Flexor mechanism: The popliteus, gastrocnemius, and hamstring tendons are intact. Quadriceps tendon: Intact Patellar tendon: Intact Patellar retinacula: Intact MR/MR knee LT wo con IMPRESSION: 3.0 x 2.0 x 1.6 cm probable ganglion cyst at the posterior aspect of the knee, just inferior to the medial femoral condyle. Otherwise unremarkable MRI of the left knee. Electronically signed by: Gera Cooley MD 06/25/2024 07:18 AM EDT
== END 2024-06-24 17:36 | disposition home or self-care (01) ==
LOC: HO.MRI 17:35
PROVIDERS: PCP Internal Medicine; Visit Provider Internal Medicine
DX: S89.92XD Unspecified injury of left lower leg, subsequent encounter (principal); Z91.81 History of falling
CPT/HCPCS: 73721

== ENCOUNTER → 2024-06-24 17:41 | Outpatient (BNV) | payer OTHER, SELFPAY | PROVIDERS: PCP Internal Medicine; Visit Provider Radiology Diagnostic Radiology | DX: M67.462 Ganglion, left knee (principal) | CPT/HCPCS: 73721 ==

== ENCOUNTER → 2024-06-29 10:25 | Outpatient (BNVA) | payer OTHER, SELFPAY | PROVIDERS: PCP Internal Medicine; Visit Provider Physician Assistant Medical | DX: S80.02XD Contusion of left knee, subsequent encounter (principal); W18.09XD Striking against other object with subsequent fall, subsequent encounter; M46.1 Sacroiliitis, not elsewhere classified | CPT/HCPCS: 99213 ==

== ENCOUNTER 2024-07-14 14:38 | Outpatient (AMB) | payer OTHER, SELFPAY ==
--- NOTE | 2024-07-14 14:45 | MHC.OFFVIS ---
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 Patient reports that she has tripped over a bed cord causing her to fall on her left side. Patient had an MRI and is currently attending PT here at [facility]. Currently her most discomort is in her knee. States pain wraps around her knee as well as numbness and tingling. Her hip pain is located at her buttocks area and travels down the lateral aspect of leg. Finds some relief with Tylenol and ibuprofen, she uses a muscle relaxer as needed. 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 She states on 05/20 she did have an incident which caused me to. She is complaining of left hip pain which is along the lateral aspect of the hip. She is unable to sleep on that side. She feels it go down the lateral aspect of the thigh into the lateral side of the knee. She has been doing physical therapy which is causing at times worsening pain in the knee. [facility] Medical History Left knee pain Encounter for physical examination GERD (gastroesophageal reflux disease) Surgical History History of surgery History of cone biopsy of cervix Family History Father No problems noted. 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 No pain with ROM of the hip. Pain along the greater trochanter. No pain with hip flexion or abduction.There is no tenderness along the si joint, Negative SLR. NVI. Results Reviewed Results Reviewed: MR knee LT wo con IMPRESSION: 3.0 x 2.0 x 1.6 cm probable ganglion cyst at the posterior aspect of the knee, just inferior to the medial femoral condyle. Otherwise unremarkable MRI of the left knee. X-rays of the left knee obtained are negative for acute abnormalities such as fracture or dislocation. She does have mild lateralization of the patella. X-rays of the left hip obtained are negative for acute or chronic abnormalities. Assessment & Plan Assessment & Plan (1) Trochanteric bursitis, left hip: Code(s): M70.62 - Trochanteric bursitis, left hip Category: Medical Plan: We discussed options today which include physical therapy and steroid injections. She would like to hold off on injections at this time and proceed with physical therapy. I did send her a prescription for ibuprofen 800 mg 3 times a day to help with her discomfort. If symptoms persist or worsen she will contact our office for an injection in the left hip otherwise follow up as needed. Medications: New ibuprofen 800 mg PO TID 42 tabs 0RF 14 days Coding Level of Care Code New Pt Level 3 (41983) Complex EM visit Add On G2211 Diagnoses Trochanteric bursitis, left hip M70.62
[2024-07-14 14:54] VITALS: BMI 25.9
== END 2024-07-14 16:12 | disposition home or self-care (01) ==
LOC: HO.HOS 14:38
PROVIDERS: PCP Internal Medicine; Visit Provider Physician Assistant
DX: M70.62 Trochanteric bursitis, left hip (principal)
CPT/HCPCS: 99203

== ENCOUNTER → 2024-07-14 14:38 | Outpatient (BNVA) | payer OTHER, SELFPAY | PROVIDERS: PCP Internal Medicine; Visit Provider Physician Assistant ==

== ENCOUNTER → 2024-07-15 10:44 | Outpatient (BNVA) | payer OTHER, SELFPAY | PROVIDERS: PCP Internal Medicine; Visit Provider Physician Assistant Medical | DX: S80.02XD Contusion of left knee, subsequent encounter (principal); W18.09XD Striking against other object with subsequent fall, subsequent encounter; M53.3 Sacrococcygeal disorders, not elsewhere classified | CPT/HCPCS: 99213 ==

== ENCOUNTER 2024-08-03 15:00 | Outpatient (RCR) | payer OTHER, SELFPAY | END 2024-10-07 13:25 | disposition home or self-care (01) | LOC: HO.PT 15:00 | PROVIDERS: PCP Internal Medicine; Visit Provider Physician Assistant Medical | DX: M70.62 Trochanteric bursitis, left hip (principal) | CPT/HCPCS: 97110; 97140; 97161; 97162; 97535 ==

== ENCOUNTER → 2024-08-09 10:26 | Outpatient (BNVA) | payer OTHER, SELFPAY | PROVIDERS: PCP Internal Medicine; Visit Provider Physician Assistant Medical | DX: S80.02XD Contusion of left knee, subsequent encounter (principal); W18.09XD Striking against other object with subsequent fall, subsequent encounter; M53.3 Sacrococcygeal disorders, not elsewhere classified; Z02.79 Encounter for issue of other medical certificate | CPT/HCPCS: 99213 ==

== ENCOUNTER 2025-01-31 09:54 | Outpatient (AMB) | payer OTHER, MEDICAID, SELFPAY ==
--- NOTE | 2025-01-31 10:04 | A.OFFPC_ITS ---
Vital Signs 01/31/25 10:05 Height 4 ft 11 in Weight 135 lb 8 oz BMI 27.4 BP 132/84 Blood Pressure Location Lt brachial Position Sitting Pulse 95 Pulse Source Pulse Oximeter Temp 97.7 F Temp Source Temporal Artery Scan Pulse Oximetry (%) 98 Oxygen Delivery Method Room Air Intake Visit Reasons: Pain in foot Allergies melatonin Allergy (Unknown, Verified 01/31/25 10:07) pruritus Tobacco use date assessed: 01/31/25 Dental Screening Dental Screen Date: 01/31/25 Did you have a dental visit in the last 12 months?: Yes Did you have a dental problem in the last 6 months where you did not have access to dental care?: No Was dental information given to patient?: Patient has dentist HPI HPI Comments History of Present Illness Details Patient is a 35-year-old female presenting with an itchy rash located between the toes, present for a few weeks. The condition affects both feet and includes symptoms of peeling skin and intermittent redness and irritation. Patient reports practicing regular hygiene. There is no involvement of the toenails or other areas of the body. The condition continues despite the application of preventive powders. [facility] Medical History Left knee pain Encounter for physical examination GERD (gastroesophageal reflux disease) Surgical History History of surgery History of cone biopsy of cervix Family History Father No problems noted. 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 1. Little interest or pleasure in doing things: not at all 2. Feeling down, depressed, or hopeless: not at all 3. Trouble falling or staying asleep, or sleeping too much: not at all 4. Feeling tired or having little energy: several days 5. Poor appetite or overeating: not at all 6. Feeling bad about yourself - or that you are a failure or have let yourself or your family down: not at all 7. Trouble concentrating on things, such as reading the newspaper or watching television: not at all 8. Moving or speaking so slowly that other people could have noticed. Or the opposite - being so fidgety or restless that you have been moving around a lot more than usual: not at all 9. Thoughts that you would be better off or of hurting yourself in some way: not at all Total score: 1 Depression Screening Interpretation: Positive Depression Screening Done: Yes 22377 - PHQ-9 Billing: Yes Source: Developed by Drs. Gera Rodas, Ruth Ann Lr, Walter Urrutia and colleagues, with an educational destiney from [employer]. Thrive Questionnaire Date Thrive assessed: 06/23/24 I am a: Patient What is your living situation today?: I have a steady place to live Within the past 12 months, did the food you bought not last and you didn't have the money to get more?: I choose not to answer this question Within the past 12 months, did you worry whether your food would run out before you got money to buy more?: I choose not to answer this question Do you have trouble paying for medicines?: No Do you have trouble getting transportation to medical appointments?: No Do you have trouble paying your heating and electricity bill?: No Do you have trouble taking care of your child, family member or friend?: No Do you have trouble with day-to-day activities such as bathing, preparing meals, shopping, managing finances, etc.?: Yes Are you currently unemployed and looking for a job?: No Are you interested in more education?: No Please select the resources that you would like help with: None Currently or been in a relationship where the following occur: I choose not to answer THRIVE Score: 0 AUDIT C Alcohol Use Questionnaire (AUDIT-C) 1. How often do you have a drink containing alcohol?: Monthly or less 2. How many drinks containing alcohol do you have on a typical day when you are drinking?: 1 or 2 3. How often do you have six or more drinks on one occasion?: Never Total Score: 1 Score Reviewed/Action Taken: No FAUZIA-7 AMB Questionnaire FAUZIA-7 Date FAUZIA - 7 assessed: 01/31/25 Feeling nervous, anxious, or on edge: 0 = Not at all Not being able to stop or control worryin = Not at all Worrying too much about different things: 0 = Not at all Trouble relaxin = Not at all Being so restless that it is hard to sit still: 0 = Not at all Becoming easily annoyed or irritable: 0 = Not at all Feeling afraid as if something awful might happen: 0 = Not at all Total FAUZIA-7 score (0-4 normal; 5-9 mild; 10-14 moderate; 15-21 severe): 0 Source: Developed by Drs. Gera Rodas, Ruth Ann Lr, Walter Urrutia and colleagues, with an educational destiney from [employer]. FAUZIA-7 Assessment Billing FAUZIA-7 Assessment Tool: FAUZIA-7 Assessment 82035 Physical exam (Primary Care) Vital Signs: Last Vital Signs Temp 97.7 F 01/31/25 10:05 Pulse 95 01/31/25 10:05 BP 132/84 01/31/25 10:05 Pulse Ox 98 01/31/25 10:05 Oxygen Delivery Method Room Air 01/31/25 10:05 Bilateral feet: Interdigital erythematous, scaly, and macerated skin in bilateral feet. No involvement of plantar surfaces or nails observed. No open lesions or secondary infection. BMI result Body Mass Index 27.4 Tobacco/Smoking Status: Tobacco use Status Tobacco use date assessed 01/31/25 01/31/25 10:08 Patient Tobacco Use Status Former Tobacco user (12/202101/31/25 10:08 ) Tobacco use type Cigarette 01/31/25 10:08 e-Cigarette/Vaping Use Never Used 01/31/25 10:08 PHQ-9: PHQ-9 Score PHQ-9: Total score 1 01/31/25 10:08 Depression Screening Interpretation: Positive Thrive Assessment: Date of Thrive Assessment Date Thrive assessed 06/23/24 01/31/25 10:08 Currently or been in a relationship where the following occur: I choose not to answer Coding Level of Care Code Est Pt Level 3 (34728) Diagnoses Tinea pedis of both feet B35.3 Additional Codes FAUZIA-7 Assessment Billing - FAUZIA-7 Assessment Tool: FAUZIA-7 Assessment 04089 ([id number]) PHQ-9 - 31802 - PHQ-9 Billing: Yes ([id number]) Assessment & Plan Assessment & Plan (1) Tinea pedis of both feet: Code(s): B35.3 - Tinea pedis Plan Patient presenting with interdigital pruritic rash between the toes in bilateral feet, present for a few weeks. The condition includes symptoms of peeling skin and intermittent redness and irritation. Patient reports practicing regular hygiene. There is no involvement of the toenails or other areas of the body. The condition continues despite the application of preventive powders. - start clotrimazole-betamethasone cream to apply twice a day for 2 weeks to affected area -follow up in 2 weeks Medications: New clotrimazole-betamethasone 1-0.05 % 1 appl topical BID 15 grams 0RF tinea pedis 2 weeks
[2025-01-31 10:05] VITALS: BP 132/84; PULSE 95; TEMP 36.5; O2SAT 98; BMI 27.4
== END 2025-01-31 10:51 | disposition home or self-care (01) ==
PROVIDERS: PCP Internal Medicine; Visit Provider Student in an Organized Health Care Education/Training Program
DX: B35.3 Tinea pedis (principal)

== ENCOUNTER → 2025-01-31 09:54 | Outpatient (BNVA) | payer OTHER, SELFPAY | PROVIDERS: PCP Internal Medicine; Visit Provider Student in an Organized Health Care Education/Training Program | DX: B35.3 Tinea pedis (principal) | CPT/HCPCS: 96127 ==

== ENCOUNTER 2025-02-17 10:47 | Outpatient (AMB) | payer OTHER, MEDICAID, SELFPAY ==
[2025-02-17 10:58] VITALS: BP 124/72; PULSE 98; RESP 18; O2SAT 99; BMI 27.5
--- NOTE | 2025-02-17 10:58 | MHC.PC.OV ---
Vital Signs 02/17/25 10:58 Height 4 ft 11 in Weight 136 lb 4 oz BMI 27.5 BP 124/72 Blood Pressure Location Lt brachial Position Sitting Respiration 18 Pulse 98 Pulse Source Pulse Oximeter Temp Source Temporal Artery Scan Pulse Oximetry (%) 99 Oxygen Delivery Method Room Air Intake Visit Reasons: sinus infection Cartridge Filler Required: No Accompanied by: Self / Same As Patient Allergies melatonin Allergy (Unknown, Verified 02/17/25 10:59) pruritus Tobacco use date assessed: 02/17/25 Dental Screening Dental Screen Date: 02/17/25 Did you have a dental visit in the last 12 months?: Yes Did you have a dental problem in the last 6 months where you did not have access to dental care?: No Was dental information given to patient?: Patient has dentist HPI HPI Comments History of Present Illness Details The patient is a 35-year-old individual presenting for evaluation of symptoms including rhinorrhea and sore throat. The patient's symptoms began two days ago of rhinorrhea, sore throat, facial pain, and congestion yesterday. The rhinorrhea is described as clear and watery, and the sore throat feels like a scratching sensation. Associated symptoms include a mild cough. The patient denies any fever, chills, or headache. The patient received an influenza vaccination one week ago and tested negative for COVID-19 yesterday at work but has not been tested for influenza. The patient reports history of anemia and reports ongoing fatigue and weakness. The patient also reports developing multiple bruises all over the body without any known trauma about two weeks ago, which the patient believes is related to low iron. Current medications include ibuprofen and a topical cream for interdigital toe infection, which is reported to be effective. [facility] Medical History Left knee pain Encounter for physical examination GERD (gastroesophageal reflux disease) Surgical History History of surgery History of cone biopsy of cervix Family History Father No problems noted. 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 1. Little interest or pleasure in doing things: not at all 2. Feeling down, depressed, or hopeless: not at all 3. Trouble falling or staying asleep, or sleeping too much: not at all 4. Feeling tired or having little energy: several days 5. Poor appetite or overeating: not at all 6. Feeling bad about yourself - or that you are a failure or have let yourself or your family down: not at all 7. Trouble concentrating on things, such as reading the newspaper or watching television: not at all 8. Moving or speaking so slowly that other people could have noticed. Or the opposite - being so fidgety or restless that you have been moving around a lot more than usual: not at all 9. Thoughts that you would be better off or of hurting yourself in some way: not at all Total score: 1 Depression Screening Interpretation: Positive Depression Screening Done: Yes 72103 - PHQ-9 Billing: Yes Source: Developed by Drs. Gera Rodas, Ruth Ann Lr, Walter Urrutia and colleagues, with an educational destiney from [employer]. Thrive Questionnaire Date Thrive assessed: 02/17/25 I am a: Patient What is your living situation today?: I have a steady place to live Within the past 12 months, did the food you bought not last and you didn't have the money to get more?: I choose not to answer this question Within the past 12 months, did you worry whether your food would run out before you got money to buy more?: I choose not to answer this question Do you have trouble paying for medicines?: No Do you have trouble getting transportation to medical appointments?: No Do you have trouble paying your heating and electricity bill?: No Do you have trouble taking care of your child, family member or friend?: No Do you have trouble with day-to-day activities such as bathing, preparing meals, shopping, managing finances, etc.?: Yes Are you currently unemployed and looking for a job?: No Are you interested in more education?: No Please select the resources that you would like help with: None Currently or been in a relationship where the following occur: I choose not to answer THRIVE Score: 0 AUDIT C Alcohol Use Questionnaire (AUDIT-C) 1. How often do you have a drink containing alcohol?: Monthly or less 2. How many drinks containing alcohol do you have on a typical day when you are drinking?: 1 or 2 3. How often do you have six or more drinks on one occasion?: Never Total Score: 1 Score Reviewed/Action Taken: No FAUZIA-7 AMB Questionnaire FAUZIA-7 Date FAUZIA - 7 assessed: 01/31/25 Feeling nervous, anxious, or on edge: 0 = Not at all Not being able to stop or control worryin = Not at all Worrying too much about different things: 0 = Not at all Trouble relaxin = Not at all Being so restless that it is hard to sit still: 0 = Not at all Becoming easily annoyed or irritable: 0 = Not at all Feeling afraid as if something awful might happen: 0 = Not at all Total FAUZIA-7 score (0-4 normal; 5-9 mild; 10-14 moderate; 15-21 severe): 0 Source: Developed by Drs. Gera Rodas, Ruth Ann Lr, Walter Urrutia and colleagues, with an educational destiney from [employer]. FAUZIA-7 Assessment Billing FAUZIA-7 Assessment Tool: FAUZIA-7 Assessment 54326 Physical exam (Primary Care) Vital Signs: Last Vital Signs Pulse 98 02/17/25 10:58 Resp 18 02/17/25 10:58 BP 124/72 02/17/25 10:58 Pulse Ox 99 02/17/25 10:58 Oxygen Delivery Method Room Air 02/17/25 10:58 General: Well-appearing, alert, oriented ?3, in no acute distress. HEENT: Normocephalic, atraumatic, PERRLA, EOMI, no scleral icterus. External ears normal, tympanic membranes intact bilaterally, no erythema or effusion. Nares patent, erythematous nasal mucosa, no discharge. Posterior oropharyngeal erythema. Neck Supple. Cardiovascular: RRR, S1-S2 appreciated, no murmurs, rubs or gallops. Respiratory: Lungs clear to auscultation bilaterally, no wheezes, rales or rhonchi. BMI result Body Mass Index 27.5 Tobacco/Smoking Status: Tobacco use Status Tobacco use date assessed 02/17/25 02/17/25 11:03 Patient Tobacco Use Status Former Tobacco user (12/202102/17/25 11:03 ) Tobacco use type Cigarette 02/17/25 11:03 e-Cigarette/Vaping Use Never Used 02/17/25 11:03 PHQ-9: PHQ-9 Score PHQ-9: Total score 1 02/17/25 11:03 Depression Screening Interpretation: Positive Thrive Assessment: Date of Thrive Assessment Date Thrive assessed 02/17/25 02/17/25 11:03 Currently or been in a relationship where the following occur: I choose not to answer Coding Level of Care Code Est Pt Level 4 (75453) Diagnoses Viral upper respiratory tract infection J06.9 URI type: unspecified viral URI Anemia, unspecified type D64.9 Anemia type: unspecified type Tinea pedis of both feet B35.3 Additional Codes FAUZIA-7 Assessment Billing - FAUZIA-7 Assessment Tool: FAUZIA-7 Assessment 44441 ([id number]) PHQ-9 - 76153 - PHQ-9 Billing: Yes ([id number]) Assessment & Plan Assessment & Plan (1) Upper respiratory tract infection: Code(s): J06.9 - Acute upper respiratory infection, unspecified Category: Medical Qualifiers: URI type: unspecified viral URI Qualified Code(s): J06.9 - Acute upper respiratory infection, unspecified Plan: The patient's presentation with rhinorrhea, congestion, sore throat, and facial pain lasting for two days is most consistent with a viral etiology, given the absence of fever or purulent discharge. A bacterial infection is not suspected, and antibiotics are not indicated at this time. The plan is for symptomatic management. The patient is advised to use Tylenol or ibuprofen as needed for pain. Fluticasone (Flonase) nasal spray is prescribed to be used once daily for five days, then as needed. [id number] nasal saline spray is also recommended for congestion, to be used twice daily as needed. The patient was instructed to return if symptoms worsen, or if a fever, severe headache, or purulent nasal discharge develops. (2) Anemia: Code(s): D64.9 - Anemia, unspecified Qualifiers: Anemia type: unspecified type Qualified Code(s): D64.9 - Anemia, unspecified Plan: Patient reports history of anemia and iron deficiency. We will obtain CBC and iron panel to further evaluate. (3) Tinea pedis of both feet: Code(s): B35.3 - Tinea pedis Plan: The patient presented about 2 weeks ago with interdigital pruritic erythematous rash between the toes in bilateral feet, for which she was started on clotrimazole-betamethasone cream, which has helped with her symptoms and much improvement of the area. Orders: Orders Complete Blood Count Auto Diff Today D64.9 - Anemia, unspecified IRON PROFILE Today D64.9 - Anemia, unspecified Comprehensive Met. Panel Today Z00.00 - Encounter for general adult medical examination without abnormal findings Medications: New fluticasone propionate 50 mcg/actuation administer into each nostril 1 spray intranasal DAILY 16 grams 0RF sinusitis 5 days sodium chloride 0.9% (Simply Saline) 1 spray intranasal BID PRN 45 grams 0RF dry nasal passages
== END 2025-02-17 11:27 | disposition home or self-care (01) ==
LOC: HO.HMCH 10:48
PROVIDERS: PCP Internal Medicine; Visit Provider Student in an Organized Health Care Education/Training Program
DX: J06.9 Acute upper respiratory infection, unspecified (principal); D64.9 Anemia, unspecified; B35.3 Tinea pedis

== ENCOUNTER 2025-02-18 10:35 | Outpatient (REF) | payer OTHER, MEDICAID, SELFPAY ==
[2025-02-18 10:44] LABS: MANUAL DIFF FLAG NO
[2025-02-18 11:25] LABS: Hematocrit 40.9 % (37.0-47.0); Hemoglobin 13.1 g/dl (12.0-16.0); Imm Gran Abs Auto 0.02 X10*3/uL (0.00-0.03); Imm Gran Pct Auto 0.3 % (0.0-0.4); Lymphocytes Absolute Auto 1.3 X10*3/uL (1.2-4.9); Mean Corpuscular HGB Conc 32.0 g/dl (31.0-35.0); Mean Corpuscular Hemoglobin 27.7 pg (27.0-33.0); Mean Corpuscular Volume 86.5 fL (80.0-98.0); NRBC Abs Auto 0.000 X10*3/uL (0.0-0.012); NRBC Pct Auto 0.0 /100WBC (0.0-0.2); Platelet Count 314 X10*3/uL (160-400); Red Blood Count 4.73 X10*6/uL (4.20-5.50); White Blood Count 6.9 X10*3/uL (4.8-10.8)
[2025-02-18 12:26] LABS: Alanine Aminotransferase 66 U/L (0-31); Albumin Level 5.2 g/dL (3.5-5.0); Alkaline Phosphatase 81 U/L (39-117); Anion Gap 14 (12-20); Aspartate Amino Transferase 35 U/L (5-31); Blood Urea Nitrogen 17 mg/dL (9-16); Calcium 9.3 mg/dL (8.4-10.2); Carbon Dioxide 22 mmol/L (22-29); Chloride 108 mmol/L (96-108); Estimated Glomerular Filt Rate > 60; Iron 101 mcg/dL (30-160); Percent Iron Saturation 23 % (15-50); Potassium 4.1 mmol/L (3.3-5.1); Sodium 140 mmol/L (135-145); Total Iron Binding Capacity 446 mcg/dL (228-428); Total Protein 7.7 g/dL (6.5-8.0); Unsaturated Iron Binding 345 ug/dL
== END 2025-02-18 10:36 | disposition home or self-care (01) ==
LOC: HO.LAB 10:35
PROVIDERS: PCP Internal Medicine; Visit Provider Student in an Organized Health Care Education/Training Program
DX: Z00.00 Encounter for general adult medical examination without abnormal findings (principal); D64.9 Anemia, unspecified; J34.89 Other specified disorders of nose and nasal sinuses; R07.0 Pain in throat; J06.9 Acute upper respiratory infection, unspecified; B35.3 Tinea pedis
CPT/HCPCS: 36415; 80053; 83540; 85025; 96127

== ENCOUNTER 2025-02-23 11:06 | Outpatient (AMB) | payer OTHER, MEDICAID, SELFPAY ==
--- NOTE | 2025-02-23 11:20 | A.OFFPC_ITS ---
Vital Signs 02/23/25 11:21 Height 4 ft 11 in Weight 137 lb 4 oz BMI 27.7 BP 140/70 H Blood Pressure Location Lt brachial Position Sitting Pulse 103 H Pulse Source Pulse Oximeter Temp 97.3 F Temp Source Temporal Artery Scan Pulse Oximetry (%) 92 Oxygen Delivery Method Room Air Intake Visit Reasons: feeling weak Intake Note: Patient is here to follow up on feeling sick. Desk Editor Required: No Student Life Advisor: Not Required per policy Accompanied by: Self / Same As Patient Allergies melatonin Allergy (Unknown, Verified 02/23/25 11:21) pruritus Tobacco use date assessed: 02/23/25 Dental Screening Dental Screen Date: 02/17/25 HPI HPI Comments History of Present Illness Details History of Present Illness - The patient is a 35 year old individua l presenting with difficulty sleeping and fatigue. - Regarding the insomnia, the patient re ports tossing and turning at night and notes the problem has been worsening recently. - The patient experiences a racing mind and feels anxious, although denies fears that something bad will happen. - The patient feels drained and tired at work, has trouble concentrating, and sometimes stares at things. - The patient denies any history of anxi ety or psychiatric medications in childhood. - The patient's appetite is variable; so metimes hungry and sometimes not, occasionally skipping meals or not eating for a full day after a large meal. - The patient reported developing bruise s all over the body a couple of weeks ago and has a history of anemia, but recent bloodwork from the showed no anemia and normal platelets. - Lab results did show slightly elevated liver enzymes. - The patient admits to heavy alcohol co nsumption before October due to a separation but denies heavy drinking in December. Social History - The patient lives alone with two child jesus, ages 14 and 11. - The patient works at the [employer] - The patient reports drinking heavily b efore October due to a separation, but now drinks infrequently. Results - Labs from 01/18: Blood work showed no anemia and normal platelets. - Liver Function Tests: Slightly elevate d. [facility] Medical History Left knee pain Encounter for physical examination GERD (gastroesophageal reflux disease) Surgical History History of surgery History of cone biopsy of cervix Family History Father No problems noted. 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 Current occupational exposures/hazards: No Cognitive needs: No Hearing needs: No Vision needs: No Questionnaire Thrive Questionnaire Date Thrive assessed: 06/23/24 I am a: Patient What is your living situation today?: I have a steady place to live Within the past 12 months, did the food you bought not last and you didn't have the money to get more?: I choose not to answer this question Within the past 12 months, did you worry whether your food would run out before you got money to buy more?: I choose not to answer this question Do you have trouble paying for medicines?: No Do you have trouble getting transportation to medical appointments?: No Do you have trouble paying your heating and electricity bill?: No Do you have trouble taking care of your child, family member or friend?: No Do you have trouble with day-to-day activities such as bathing, preparing meals, shopping, managing finances, etc.?: Yes Are you currently unemployed and looking for a job?: No Are you interested in more education?: No Please select the resources that you would like help with: None Currently or been in a relationship where the following occur: I choose not to answer THRIVE Score: 0 FAUZIA-7 AMB Questionnaire FAUZIA-7 Date FAUZIA - 7 assessed: 01/31/25 Source: Developed by Drs. Gera Rodas, Ruth Ann Lr, Walter Urrutia and colleagues, with an educational destiney from [employer] Review of Systems Narrative Review of Systems - Constitutional: Reports fatigue, feeling drained, and changes in appetite. - Psychiatric: Reports insomnia with tossing and turning, a racing mind, and anxiety. Denies crying. - Neurological: Reports difficulty with concentration, including staring spells. - Skin/Hematologic: Reports recent bruising all over the body. Physical exam (Primary Care) Vital Signs: Last Vital Signs Temp 97.3 F 02/23/25 11:21 Pulse 103 H 02/23/25 11:21 BP 140/70 H 02/23/25 11:21 Pulse Ox 92 02/23/25 11:21 Oxygen Delivery Method Room Air 02/23/25 11:21 BMI result Body Mass Index 27.7 Tobacco/Smoking Status: Tobacco use Status Tobacco use date assessed 02/23/25 02/23/25 11:22 Patient Tobacco Use Status Former Tobacco user (12/202102/23/25 11:22 ) Tobacco use type Cigarette 02/23/25 11:22 e-Cigarette/Vaping Use Never Used 02/23/25 11:22 Thrive Assessment: Date of Thrive Assessment Date Thrive assessed 06/23/24 02/23/25 11:22 Currently or been in a relationship where the following occur: I choose not to answer Narrative Physical Exam General: Appearance normal, both eyes and all related structures Nutritional Appearance: Sometimes hungry, sometimes not hungry Orientation/consciousness: Patient oriented x3 Limitations: No limitations Head: Normal to inspection Neck: Normal visual inspection Chest: Normal palpation of entire chest wall Respiratory: Normal respiratory effort Neurology: Patient oriented x3 Coding Level of Care Code Est Pt Level 4 (53661) Complex visit Add On G2211 Diagnoses Insomnia G47.00 Assessment & Plan Assessment & Plan (1) Insomnia: Code(s): G47.00 - Insomnia, unspecified Plan Plan - Prescribed Trazodone for insomnia to be taken as needed. - Educated the patient that Trazodone is not habit-forming. - Advised the patient to take Trazodone earlier in the evening if morning drowsiness occurs and to trial it over the weekend. - Discussed that if Trazodone is ineffective or anxiety persists, a daily medication could be considered. - Plan to recheck liver function tests in a couple of months. - Scheduled a follow-up appointment in four weeks to evaluate the response to treatment. - Provided a work note for today. - Prescription for Trazodone was sent to [facility] on [address]. Discussion Notes I discussed the patient's symptoms of insomnia, fatigue, and anxiety. I recommended starting with Trazodone for sleep, explaining that it is non-habit forming and can be taken as needed. I advised the patient to trial the medication over the weekend and to take it earlier in the evening if morning drowsiness is experienced. We discussed that if this approach is not effective, we could consider a daily medication for anxiety. I reviewed the recent lab work, reassuring the patient that the results for anemia and platelets were normal, which do not explain the reported bruising. I noted the slightly elevated liver enzymes and will plan to recheck them in a couple of months, considering the patient's past alcohol intake. I instructed the patient to follow up in four weeks to assess progress. Patient Instructions - I have sent a prescription for Trazodone to the [facility] on [facility]. - Take this medication to help you sleep. It is not habit-forming. - Try taking the medicine this weekend to see how it affects you. - If you feel too tired in the morning, take the medicine earlier in the evening on the following night. - Your recent blood work showed no anemia and normal platelets, so you do not need to worry about the bruising. - We will check your liver function with another blood test in a couple of months. - Please make a follow-up appointment to see me in four weeks. - You will be provided with a work note for today's visit. Medications: New 2 trazodone 100 mg PO BEDTIME 90 days PRN 90 tabs 1RF sleep trazodone 100 mg PO BEDTIME PRN 90 tabs 1RF sleep 90 days
[2025-02-23 11:21] VITALS: BP 140/70; PULSE 103; TEMP 36.3; O2SAT 92; BMI 27.7
== END 2025-02-23 11:53 | disposition home or self-care (01) ==
LOC: HO.HMCH 11:07
PROVIDERS: PCP Internal Medicine; Visit Provider Internal Medicine
DX: G47.00 Insomnia, unspecified (principal)